=== PATIENT | male | born 1930 | race Caucasian/White ===

== ENCOUNTER 2017-09-09 04:51 | Inpatient (IN) | payer OTHER ==
[2017-07-15 08:50] VITALS: Ht 172.7 cm; Wt 75.6 kg
--- NOTE | 2017-07-15 09:24 | PAT Medication Instructions ---
Service Date Jul 15, 2017. Current Home Medication List Aspirin (Aspirin), 81 MG PO QPM Carvedilol (Coreg), 25 MG PO BID Dorzolamide Hcl-Timolol Maleat (Cosopt Oph), 1 DROPS OPB BID Felodipine (Plendil), 10 MG PO QPM Fluticasone Propionate (Flovent Hfa), 2 PUFFS INH BID Fluticasone Propionate (Nasal) (Flonase Allergy Relief), 2 SPRAY NA QPM Hydralazine Hcl (Apresoline), 50 MG PO TID Levothyroxine Sodium (Levothyroxine Sodium), 1 TAB PO QAM Lisinopril (Zestril), 40 MG PO QAM Metformin Hcl (Glucophage), 500 MG PO BIDM [employer]ax [employer] Natural Products (Cloud Your Car Health), 1 CAP PO QPM Multivitamin (Multivitamin), 1 TAB PO NON Naproxen (Aleve), 220 MG PO BID [place]-3 Fatty Acids (Fish Oil), 1 TAB PO NOON Simvastatin (Zocor), 10 MG PO QPM Travoprost (Travatan Z), 1 DROPS OPB HS Triamterene/Hctz (Maxzide 75MG/50MG), 1 TAB PO QAM Medication Instructions For Your Scheduled Surgery -Ask your surgeon for instructions regarding: Naproxen (Aleve), 220 MG PO BID - Hold the following medications 2 weeks prior to surgery: [place]-3 Fatty Acids (Fish Oil), 1 TAB PO NOON - Hold the following medications 48 hours prior to surgery: Metformin Hcl (Glucophage), 500 MG PO BIDM - Hold the following medications the morning of surgery: Triamterene/Hctz (Maxzide 75MG/50MG), 1 TAB PO QAM Multivitamin (Multivitamin), 1 TAB PO NOON Lisinopril (Zestril), 40 MG PO QAM - Take the following medications the morning of surgery with a sip of water: Hydralazine Hcl (Apresoline), 50 MG PO TID Fluticasone Propionate (Flovent Hfa), 2 PUFFS INH BID Carvedilol (Coreg), 25 MG PO BID Dorzolamide Hcl-Timolol Maleat (Cosopt Oph), 1 DROPS OPB BID (BRING WITH YOU TO THE HOSPITAL) Levothyroxine Sodium (Levothyroxine Sodium), 1 TAB PO QAM - Take the following medications as scheduled the night before surgery: Aspirin (Aspirin), 81 MG PO QPM Misc Natural Products (Prostate Health), 1 CAP PO QPM Carvedilol (Coreg), 25 MG PO BID Dorzolamide Hcl-Timolol Maleat (Cosopt Oph), 1 DROPS OPB BID Felodipine (Plendil), 10 MG PO QPM Fluticasone Propionate (Flovent Hfa), 2 PUFFS INH BID Fluticasone Propionate (Nasal) (Flonase Allergy Relief), 2 SPRAY NA QPM Hydralazine Hcl (Apresoline), 50 MG PO TID Simvastatin (Zocor), 10 MG PO QPM Travoprost (Travatan Z), 1 DROPS OPB HS If you have any questions please call us at [phone] or [phone] or [phone]
--- NOTE | 2017-07-15 10:10 | DIAGNOSTIC IMAGING REPORT ---
CHEST PREADMISSION(PA/LAT) CLINICAL HISTORY: 86 years-old Male presenting with preoperative assessment. TECHNIQUE: Portable upright AP view of the chest was obtained. COMPARISON: None. FINDINGS: Atherosclerosis of aortic arch. Cardiac silhouette normal in size. Lungs and pleural spaces clear. Degenerative changes of the thoracic spine. Mildly exaggerated thoracic kyphosis with a focal compression deformity in a lower thoracic vertebral body. Upper abdomen normal. IMPRESSION: 1. No acute cardiopulmonary disease. 2. Focal compression deformity in the lower thoracic vertebral body, age indeterminant. Correlate for point tenderness. Electronically signed by: Berto Andino M.D. 07/15/2017 10:09 AM Dictated Date/Time: 07/15/2017 10:08 AM
[2017-07-15 10:23] LABS: BASO % 0.8 %; BASO ABS # 0.08 K/uL (0-0.2); COMPLETE YES; EOS % 8.7 %; HEMATOCRIT 41.4 % (42-52); IG% 0.5 %; LYMPH % 14.8 %; LYMPH ABS # 1.48 K/uL (1.2-3.4); MEAN CELL VOLUME 86.3 fL (80-100); MEAN CORPUSCULAR HEMOGLOBIN 29.8 pg (25-34); MEAN CORPUSCULAR HGB CONC 34.5 g/dl (32-36); MEAN PLATELET VOLUME 8.7 fL (7.4-10.4); MONO % 7.8 %; NEUT % 67.4 %; PLATELET COUNT 280 K/uL (130-400); WHITE BLOOD COUNT 9.97 K/uL (4.8-10.8)
[2017-07-15 10:30] LABS: INR 1.1 (0.9-1.1); PARTIAL THROMBOPLASTIN RATIO 1.1; PROTHROMBIN TIME (PATIENT) 11.3 SECONDS (9.0-12.0)
[2017-07-15 11:02] LABS: BUN/CREATININE RATIO 16.3 (10-20); CALCIUM 9.2 mg/dl (8.5-10.1); CREATININE 1.4 mg/dl (0.60-1.40); POTASSIUM 3.7 mmol/L (3.5-5.1)
--- NOTE | 2017-09-05 10:22 | HISTORY & PHYSICAL EXAMINATION ---
DATE OF ADMISSION: 09/09/2017 CHIEF COMPLAINT: Right hip, thigh and leg pain. HISTORY OF PRESENT ILLNESS: The patient is an 86-year-old fairly independent and active gentleman from [place] who presents for treatment of his right hip. He has got a several year history of increasing right hip pain and discomfort. He describes it has gotten worse over the past several years and more specifically over the past 6 months. He has had to use a cane to get around. He has been seen by Dr. Gasca and Dr. Tabares neurologist and sent him here to have his hip fixed. He has been pretty independent, but less able to do so now that his hip is bothering him. He takes some medicines which takes the edge off it at best. He would like to have his hip fixed. PAST MEDICAL HISTORY: 1. Diabetes with hemoglobin A1c of 5.8. 2. Hypothyroidism. 3. Elevated cholesterol. 4. Skin cancer. 5. Hypertension. 6. Asthma. PAST SURGICAL HISTORY: 1. Hernia repair. 2. Polyp removal from the sinuses. ALLERGIES: None. CURRENT MEDICINES: Include: 1. Hydralazine 50 mg a day. 2. Levoxyl 10 mcg daily. 3. Felodipine ER 10 mg a day. 4. Lisinopril 40 mg a day. 5. Metformin 500 mg twice a day with meals. 6. Carvedilol 25 mg twice a day. 7. Simvastatin/Zocor 10 mg at bedtime. 8. Triamterene/hydrochlorothiazide 75/50 once a day. 9. Flovent inhaler 2 puffs twice a day. 10. Flonase nasal spray 2 sprays in each nostril once a day. 11. Cosopt ophthalmic solution. 12. Multivitamin. 13. Prostate health tablets. 14. Aspirin 81 mg. 15. [place] fish oil. 16. Travatan eyedrops. SOCIAL HISTORY: An 86-year-old male. He is . Three children. He does not drink. FAMILY HISTORY: Significant for heart disease. REVIEW OF SYSTEMS: Negative or diabetes. He is diabetic, but very well controlled with hemoglobin A1c of 5.8. Denies any chest pain or shortness of breath. No history of DVT or PE. PHYSICAL EXAMINATION: GENERAL: Reveals a pleasant elderly male. He looks to be in good health. HEAD, EYES, EARS, NOSE, AND THROAT EXAMINATION: Benign. NECK: Supple. No lymphadenopathy. LUNGS: Clear to auscultation. HEART: Has a regular rate and rhythm. ABDOMEN: Soft, nontender, nondistended. EXTREMITY EXAMINATION: Grossly neurovascularly intact except as follows: Examination of the right hip and leg reveals the patient walks with an antalgic gait. He is using a cane to walk. He has about 1 cm short on the right side compared to left. Very stiff hip with internal rotation -5 and pain with this. He has got negative straight leg raise. X-RAYS: X-rays of the right hip were reviewed. It shows advanced right hip DJD. He has got complete loss of the superior joint space. He has got flattening of his femoral head. He has got cystic changes in the femoral head and acetabulum with a large medial osteophyte. ASSESSMENT: An 86-year-old male with advanced right hip degenerative joint disease. He has failed conservative care and really limiting his activities and ability to maintain an active lifestyle. PLAN: We are going to take him to the operating room and do a right total hip replacement. The risks and benefits of this procedure were explained to the patient including but not limited to DVT, PE, , infection, neurological injury, vascular injury, bleeding problem, pain, limited range of motion, stiffness, failure to relieve her symptoms, incomplete relief of symptoms, need for further surgery in the future, fracture, leg length inequality, nerve palsy, dislocation, fracture, need for blood transfusion, etc. The patient understands and desires to proceed. Informed consent was obtained. We did talk to him about holding his lisinopril the morning of surgery and his metformin 2 days preoperatively. He will take his beta antoni the morning of surgery. He is planning to be discharged to home with the [facility] home health program. His daughter is going to help take care of him.
[2017-09-09] VITALS (19 sets, daily range): BP systolic 107–163; BP diastolic 56–83; PULSE 47–97; TEMP 34.8–37.1; O2SAT 95–99
[~2017-09-09] VITALS: Ht 172.7 cm; Wt 75.6 kg
[~2017-09-09 04:51] MED LIST: ASPI-461 PO; CARV25TA PO; DORZ1SOL6 OPB; FELO10TA2 PO; FLUT0.15 NAE; FLVHFA110 INH; GLC/500 PO; HYDR-4717 PO; LEVO100T7 PO; LISI40TA PO; MISCCAP63 PO; MULT-506 PO; NAPR1TAB9 PO; OMEG10002 PO; SIMV10TA2 PO; TRAV0.00 OPB; TRIA75TA53 PO
[2017-09-09] MEDS ORDERED: SPIR25TA PO (05:43)
[2017-09-09] MEDS ORDERED: HYD50 (05:43)
[2017-09-09] MEDS ORDERED: GABAPENTIN 300 MG CAP PO SCH (06:00)
[2017-09-09] MEDS ORDERED: CEFAZOLIN 2000MG IV PUSH 10 ML IV SCH (06:00)
[2017-09-09] MEDS ORDERED: TRANEXAMIC ACID INJ 1,000 MG in SYRINGE 0 ML IV SCH (06:00)
[2017-09-09] MEDS ORDERED: ACETAMINOPHEN 500 MG TAB PO SCH (06:00)
[2017-09-09] MEDS ORDERED: LACTATED RINGER'S 1000ML IV SCH (06:00)
[2017-09-09] MEDS ORDERED: SCOPOLAMINE 1.5 MG TDSY TD SCH (06:00)
[2017-09-09] MEDS ORDERED: METOCLOPRAMIDE HCL 10 MG TAB PO SCH (06:00)
[2017-09-09] MEDS ORDERED: LACTATED RINGER'S 1000ML 1,000 ML IV SCH (06:00)
[2017-09-09] MEDS ORDERED: FAMOTIDINE 20 MG TAB PO SCH (06:00)
[2017-09-09] MEDS ORDERED: BUPIVACAINE 0.5 % 5 MG/1 ML PF 10ML VIAL ONE (06:22)
[2017-09-09] MEDS ORDERED: BUPIVACAINE/EPINEPHRINE 0.5% MPF 1:200,000 30 ML VIAL ONE (06:33)
[2017-09-09] MEDS ORDERED: BACITRACIN 50000 UNIT VIAL ONE (06:33)
[2017-09-09] MEDS ORDERED: FENTANYL CITRATE INJ 50 MCG/1 ML 2 ML VIAL ONE (06:36)
[2017-09-09] MEDS ORDERED: MIDAZOLAM HCL 1 MG/ML 2ML VIAL ONE (06:36)
[2017-09-09] MEDS ORDERED: MORPHINE SULFATE PF 2MG/2ML SYR ONE (06:37)
--- NOTE | 2017-09-09 06:53 | History & Physical Bridge Note ---
H&P Re-Evaluation Bridge Note: I have examined the patient, reviewed the History & Physical and in the interval since the performance of the History & Physical I have noted the following changes of clinical significance: No changes noted
[2017-09-09] MEDS ORDERED: EpHEDrine SULFATE INJ 50 MG/ML AMP IV PRN ×2 (07:15→08:00)
[2017-09-09] MEDS ORDERED: FENTANYL CITRATE INJ 50 MCG/1 ML 2 ML VIAL IV PRN (07:15)
[2017-09-09] MEDS ORDERED: ONDANSETRON INJ 2 MG/ML 2 ML VIAL IV PRN ×2 (07:15→08:00)
[2017-09-09] MEDS ORDERED: ATROPINE SULFATE 0.1 MG/ML 5ML SYR IV PRN (07:15)
[2017-09-09] MEDS ORDERED: VASOPRESSIN 20 UNIT/ML VIAL ONE (07:40)
[2017-09-09] MEDS ORDERED: NALOXONE HCL INJ 1 MG in SODIUM CHLORIDE 0.9% 1000ML 1,000 ML IV PRN (07:47)
[2017-09-09] MEDS ORDERED: SODIUM CHLORIDE 0.9% 1000ML 1,000 ML IV PRN (07:47)
[2017-09-09] MEDS ORDERED: LACTATED RINGER'S 1000ML 500 ML IV PRN (07:47)
[2017-09-09] MEDS ORDERED: NALOXONE HCL INJ 0.08 MG in SYRINGE 1.8 ML IV PRN (07:47)
[2017-09-09] MEDS ORDERED: PHENYLEPHRINE 100MCG/ML 5ML SYR ONE (07:58)
[2017-09-09] MEDS ORDERED: EpHEDrine SULFATE 50MG/5ML SYR ONE (07:58)
[2017-09-09] MEDS ORDERED: PROPOFOL IV EMULSION 10 MG/ML 20 ML VIAL IV ONE (07:58)
[2017-09-09] MEDS ORDERED: MoRPHine SULFATE 2 MG/ML CARP IV PRN (08:00)
[2017-09-09] MEDS ORDERED: MoRPHine SULFATE PF 1 MG/ML 10 ML AMP/VIAL EPI PRN (08:00)
[2017-09-09] MEDS ORDERED: NALBUPHINE HCL INJ 10 MG/ML AMP IV PRN (08:00)
[2017-09-09] MEDS ORDERED: NO NARCOTICS OR SEDATIVES SCH (08:00)
[2017-09-09] MEDS ORDERED: DiphenhydrAMINE HCL 50 MG/ML VIAL IV PRN (08:00)
[2017-09-09] MEDS ORDERED: NALOXONE HCL 0.4 MG/1 ML VIAL/CARP IV PRN (08:00)
--- NOTE | 2017-09-09 08:32 | [facility] Post Operative Brief Note ---
Immediate Operative Summary Operative Date Sep 09, 2017. Pre-Operative Diagnosis Advanced Right Hip Degenerative Joint Disease Post-Operative Diagnosis Advanced Right Hip Degenerative Joint Disease Procedure(s) Performed Right Total Hip Arthroplasty--Uncemented Surgeon Dr. Fields Environmental Issues Instructor Surgeon(s) FLAVIO Rea Estimated Blood Loss 300 ml Findings Right Hip DJD Fluids (cc crystalloids) 1200 cc Specimens A. Right Femoral Head Drains None Anesthesia Spinal Complication(s) None Disposition Recovery Room / PACU
[2017-09-09] MEDS ORDERED: NO NSAIDS SCH (08:45)
[2017-09-09] MEDS ORDERED: BISACODYL 10 MG SUPP PR PRN (08:45)
[2017-09-09] MEDS ORDERED: METOCLOPRAMIDE HCL INJ 5 MG/ML 2 ML VIAL IV PRN (08:45)
[2017-09-09] MEDS ORDERED: GLUCOSE 10 TABS/TUBE PO PRN ×2 (08:45→11:30)
[2017-09-09] MEDS ORDERED: DEXTROSE 50% 50 ML SYR IV PRN ×2 (08:45→11:30)
[2017-09-09] MEDS ORDERED: TAMSULOSIN HCL 0.4 MG CAP PO PRN (08:45)
[2017-09-09] MEDS ORDERED: MAGNESIUM HYDROXIDE SUSP 30 ML UDC PO PRN (08:45)
[2017-09-09] MEDS ORDERED: GLUCAGON FOR INJ 1 MG VIAL SQ PRN ×2 (08:45→11:30)
[2017-09-09] MEDS ORDERED: ALUMINUM/MAGNESIUM/SIMETH (MAALOX MAX) 30 ML UDC PO PRN (08:45)
[2017-09-09] MEDS ORDERED: SILVER SULFADIAZINE 1% CR 50 GM JAR EXT PRN (08:45)
[2017-09-09] MEDS ORDERED: GLUCOSE 40% GEL 15 GM TUBE PO PRN ×2 (08:45→11:30)
--- NOTE | 2017-09-09 08:54 | Anesthesiology Progress Note ---
Anesthesia Post Op Note Date & Time Sep 09, 2017 at 08:53 Vital Signs Pain Intensity: 0 Vital Signs Past 12 Hours Date Time Temp Pulse Resp B/P (MAP) Pulse Ox O2 Delivery O2 Flow Rate FiO2 09/09/17 08:47 70 17 99 09/09/17 08:47 69 17 09/09/17 08:46 103/62 09/09/17 08:42 68 18 09/09/17 08:42 68 18 99 09/09/17 08:41 107/54 09/09/17 08:37 63 16 100 09/09/17 08:37 63 16 09/09/17 08:36 109/55 09/09/17 08:33 102/54 09/09/17 08:32 36.0 62 20 102/54 100 Oxymask 10 09/09/17 08:32 61 15 09/09/17 08:32 61 15 100 09/09/17 05:48 36.7 58 20 146/76 97 Room Air Notes Mental Status: alert / awake / arousable, participated in evaluation Nausea / Vomiting: adequately controlled Pain: adequately controlled Airway Patency, RR, SpO2: stable & adequate BP & HR: stable & adequate Hydration State: stable & adequate Neuraxial Anesthesia: was administered, sensory block is resolving Anesthetic Complications: no major complications apparent
[2017-09-09] MEDS ORDERED: MULTIVITAMIN TAB PO SCH (09:00)
--- NOTE | 2017-09-09 09:23 | DIAGNOSTIC IMAGING REPORT ---
AP PELVIS, CROSSTABLE LATERAL RIGHT HIP History: Right total hip arthroplasty. Degenerative arthritis. Postop. FINDINGS: The patient is status post a right total hip arthroplasty. The hardware is intact. No fracture or dislocation. Skin theo are in place. IMPRESSION: Right total hip arthroplasty. No evidence for hardware complication Electronically signed by: Krystian De Leon M.D. 09/09/2017 9:21 AM Dictated Date/Time: 09/09/2017 9:21 AM
[2017-09-09] MEDS ORDERED: HYDR25TA5 PO (10:58)
[2017-09-09] MEDS ORDERED: CRG125 PO (10:58)
[2017-09-09] MEDS ORDERED: INSULIN HUMAN REGULAR SC SCH (11:00)
[2017-09-09] MEDS ORDERED: ALBUTEROL 0.083% NEBU SOLN 3 ML VIAL INH PRN (11:00)
--- NOTE | 2017-09-09 11:30 | OPERATIVE REPORT ---
DATE OF OPERATION: 09/09/2017 PREOPERATIVE DIAGNOSIS: Right hip degenerative joint disease. POSTOPERATIVE DIAGNOSIS: Same. PROCEDURE PERFORMED: Right uncemented total hip arthroplasty. SURGEON: Sridhar Fields M.D. MEDICAL STAFF ASSISTANT: Jameel Back PA-C. COMPLICATIONS: None. ESTIMATED BLOOD LOSS: 300 mL. FLUID REPLACEMENT: 1200 mL crystalloid fluid replacement. ANESTHESIA: Spinal. DRAINS: None. SPECIMENS: Right femoral head sent for pathology. OPERATIVE INDICATIONS: The patient is an 86-year-old gentleman, quite independent, lives by himself, who has had a several year history of increasing right hip pain and discomfort that has gotten significantly worse over the past 6 months where he is having trouble even living by himself and getting around. X-rays revealed advanced right hip DJD. He failed all conservative care. He elected to proceed with total hip arthroplasty. Of note, the patient has some early signs of some Parkinson's disease. We therefore anteverted the acetabular cup a little bit more than the usual trying to maximize his stability. OPERATIVE FINDINGS: Operative findings revealed advanced right hip DJD. He had extensive grade 4 changes of the femoral head and acetabulum. He had a large medial osteophyte. Moderate size joint effusion. About a 1 cm leg length discrepancy, right side shorter than the left. OPERATIVE IMPLANTS: Operative implants consisted of: 1. Biomet G7 size 60 mm acetabular shell. 2. A 6.5 cancellous acetabular screws, 1 at 35 mm length and 1 at 25 mm in length. 3. An apex hole eliminator. 4. A highly cross-linked polyethylene liner with a 60 mm outer diameter, 36 mm inner diameter with a guallpa placed inferior and posterior. 5. A DePuy size 13.5 large stature standard offset femoral stem. 6. A +5/36 mm metal articular ball. OPERATIVE PROCEDURE: The patient was taken to the operating room, identified and placed on the operating table in supine position. All contact areas were appropriately padded. IV antibiotics were provided by anesthesia team. A spinal anesthetic had been implemented in the holding area. Ruiz catheter was placed in sterile fashion. The patient was then placed in the left lateral decubitus position. An axillary roll was placed. [facility] hip positioner was used for positioning. The right hip and leg were then prepped and draped in the usual sterile fashion. A posterolateral approach to the right hip was then performed through a curvilinear incision centered over the greater trochanter. Sharp dissection was carried down through the subcutaneous tissue down to the level of the IT band and gluteal fascia. The IT band and gluteal fascia were incised longitudinally in line with skin incision. The underlying greater trochanteric bursa was excised. The piriformis and external rotators were tagged and taken off the posterior aspect of the femur. Great care was taken throughout the procedure to protect the sciatic nerve at all times. Posterior capsulotomy was then performed leaving a large flap for later repair. It was internally rotated and dislocated. Femoral neck osteotomy cut was made with the final cut about 8 mm above the lesser trochanter. Femoral head was removed and sent for pathology. The femur was retracted anteriorly. Attention was then drawn to the acetabulum. The acetabular labrum was excised. The pulvinar fat was excised. Sequential reaming of the acetabulum was then performed beginning with a size 51 and progressing up to a 59. A 60 mm Biomet G7 acetabular shell was then placed in about 40 degrees of lateral opening and 20 degrees of anteversion. I did put a little more anteversion in this to maximize his posterior stability. The 2 screws were used to fix the acetabulum. Some osteophytes were taken off inferiorly. Attention was then drawn to the femur. The proximal femur was entered with a cookie cutter followed by canal finder and lateralizing reamer. Sequential reaming of the femur was then performed beginning with a size 10 and progressing up to a 13. We started getting a little bit of chatter at 12. 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 I broached beginning with a size 10.5 small and progressing up to 13.5 large. We got good metaphyseal fit. We elected to use these implants. I trialed the hip and the +5 articular ball recreated leg lengths appropriately and it was fully stable in full extension and external rotation, flexion to 90 degrees, internal rotation to 60 degrees. I did elect to place a guallpa very inferior and posterior to maximize stability in flexion. We elected to use these implants. All trial implants were removed. An apex hole eliminator was placed. Highly cross-linked polyethylene liner with a guallpa placed inferior and posterior were then placed. A 13.5 large stature AML femoral stem was impacted in position. We got good fit. A +5/36 mm metal articular ball was placed. Hip was located and once again found to be stable. Attention was then drawn toward closing. The wound was irrigated with copious amounts of pulsatile lavage solution. I did inject locally with 60 mL of 0.5% Marcaine with epinephrine. The posterior capsule and external rotators were then repaired through drill holes in the posterior trochanter with #2 Ti-Cron suture. The IT band and gluteal fascia were then closed with #1 PDS suture in running fashion. The subcutaneous tissues were then closed in 2 layers, the deep layer #1 Vicryl sutures, subcutaneous tissue with 2-0 Dexon suture in a buried interrupted fashion. Skin was closed skin theo. Leg was then cleaned and dried and a sterile dressing of Xeroform, 4 x 4s, sterile ABD pad and foam tape was applied. The patient was then transferred to the recovery room in stable condition. The patient tolerated the procedure with no complications. All needle and sponge counts were correct at the end of the operation. I attest to the content of the Intraoperative Record and any orders documented therein. Any exception s are noted below.
--- NOTE | 2017-09-09 11:43 | Medical Consult ---
Consultation Date of Consultation: Sep 09, 2017. Attending Physician: Sridhar Fields M.D. Reason for Consultation: Medical management History of Present Illness Pt is 86 y/o M with PMH DM II, HTN, hyperlipidemia, hypothyroidism, CKD III, asthma is seen in medical consult. Had R total hip arthroplasty today by Dr Fields. Pt had cardiac clearance prior to surgery. ECHO: 07/30/17 EF: 55-59%. Hx sinus fran with bifascicular block was asymptomatic, HR improved after decrease in carvedilol. Stress test: 08/22/17 with no inducible ischemia. Hx asthma takes flovent daily, denies any rescue inhaler use. Pt denies any pain currently. Is sitting up eating. Denies any paresthesias to extremities. Denies any nausea or vomiting. has Ruiz in place. Last BM yesterday. Afebrile. Pulse in 50's. BP stable. Denies fever/chills, diaphoresis, DEVINE, dizziness, vision changes, neck pain, CP, SOB, orthopnea, palpitations, cough, choking, abdominal pain, paresthesias, rashes. Past Medical/Surgical History Medical Problems: (1) Asthma Status: Chronic (2) Chronic rhinitis Status: Chronic (3) CKD (chronic kidney disease), stage III Status: Chronic (4) DM type 2 (diabetes mellitus, type 2) Status: Chronic (5) Glaucoma Status: Chronic (6) HTN (hypertension) Status: Chronic (7) Hx of basal cell carcinoma Status: Chronic (8) Hyperlipidemia Status: Chronic (9) Hypothyroidism Status: Chronic Surgical Problems: (1) Hx of nasal polypectomy Status: Resolved (2) Hx of right inguinal hernia repair Status: Resolved Family History Hypertension FATHER Stroke FATHER Social History Smoking Status: Never Smoker Smokeless Tobacco Use: No Alcohol Use: none Drug Use: none Marital Status: Allergies Coded Allergies: No Known Allergies (Unverified , 09/09/17) Current Inpatient Medications Current Inpatient Medications Medications (Trade) Dose Ordered Sig/Rigoberto Route Start Time Stop Time Status Last Admin Dose Admin Lactated Ringer's 1,000 ml @ 60 mls/hr [id number] IV 09/09/17 06:00 09/09/17 22:39 09/09/17 06:26 60 MLS/HR Cefazolin Sodium 10 ml @ 2.5 mls/min PREOP IV 09/09/17 06:00 09/09/17 18:00 09/09/17 06:59 2.5 MLS/MIN Acetaminophen (Tylenol Tab) 1,000 mg PREOP PO 09/09/17 06:00 09/09/17 18:00 09/09/17 06:04 1,000 MG Famotidine (Pepcid Tab) 20 mg PREOP PO 09/09/17 06:00 09/09/17 18:00 09/09/17 06:04 20 MG Gabapentin (Neurontin Cap) 300 mg PREOP PO 09/09/17 06:00 09/09/17 18:00 09/09/17 06:04 300 MG Metoclopramide HCl (Reglan Tab) 10 mg PREOP PO 09/09/17 06:00 09/09/17 18:00 09/09/17 06:04 10 MG Lactated Ringer's 1,000 ml @ 15 mls/hr Q24H IV 09/09/17 06:00 09/10/17 05:59 Fentanyl Citrate (Fentanyl Inj) 25 mcg Q5M PRN IV 09/09/17 07:15 09/09/17 12:00 Ondansetron HCl (Zofran Inj) 4 mg ONE PRN IV 09/09/17 07:15 09/09/17 12:00 Ephedrine Sulfate (EpHEDrine SULFATE INJ) 5 mg Q5M PRN IV 09/09/17 07:15 09/09/17 12:00 Atropine Sulfate (Atropine Sulfate 0.1MG/Ml Inj) 0.5 mg Q1M PRN IV 09/09/17 07:15 09/09/17 12:00 Naloxone HCl (Narcan Inj) 0.1 mg UD PRN IV 09/09/17 08:00 09/10/17 07:00 Diphenhydramine HCl (Benadryl Inj) 25 mg Q6H PRN IV 09/09/17 08:00 09/10/17 07:00 Nalbuphine HCl (Nubain Inj) 5 mg Q10M PRN IV 09/09/17 08:00 09/10/17 07:00 Naloxone HCl 1 mg/ Sodium Chloride 1,002.5 ml @ 50 mls/hr Q20H3M PRN IV 09/09/17 07:47 09/10/17 07:00 Ondansetron HCl (Zofran Inj) 4 mg Q6H PRN IV 09/09/17 08:00 09/10/17 07:00 Miscellaneous Information (Dc Intraspinal Morphine) 1 ea TODAY@0700 N/A 09/10/17 07:00 09/10/17 07:01 Miscellaneous Information (No Narcotics Or Sedatives) 1 ea UD N/A 09/09/17 08:00 09/10/17 07:00 Naloxone HCl 0.08 mg/Syringe 2 ml @ 1 mls/min Q2M PRN IV 09/09/17 07:47 09/10/17 07:00 Morphine Sulfate (MoRPHine SULFATE INJ) 2 mg Q6H PRN IV 09/09/17 08:00 09/10/17 07:00 Lactated Ringer's 500 ml @ 999 mls/hr Q31M PRN IV 09/09/17 07:47 09/10/17 07:00 Ephedrine Sulfate (EpHEDrine SULFATE INJ) 10 mg Q5M PRN IV 09/09/17 08:00 09/10/17 07:00 Morphine Sulfate (Duramorph Pf Inj) 0.2 mg TODAY PRN EPI 09/09/17 08:00 09/10/17 07:00 Sodium Chloride 1,000 ml @ 15 mls/hr Q24H PRN IV 09/09/17 07:47 09/10/17 07:00 Sodium Chloride 1,000 ml @ 100 mls/hr Q10H IV 09/09/17 10:00 09/10/17 09:59 Miscellaneous Medication (No Nsaids) 1 ea UD N/A 09/09/17 08:45 10/09/17 08:44 Acetaminophen (Tylenol Tab) 1,000 mg Q8 PO 09/09/17 14:00 10/09/17 13:59 Magnesium Hydroxide (Milk Of Magnesia Susp) 30 ml Q6H PRN PO 09/09/17 08:45 10/09/17 08:44 Bisacodyl (Dulcolax Supp) 10 mg DAILY PRN [place] 09/09/17 08:45 10/09/17 08:44 Senna (Senokot Tab) 17.2 mg HS PO 09/09/17 21:00 10/09/17 20:59 Docusate Sodium (coLACE CAP) 100 mg BID PO 09/09/17 21:00 10/09/17 20:59 Al Hydrox/Mg Hydrox/Simethicone (Maalox Max Susp) 15 ml Q4H PRN PO 09/09/17 08:45 10/09/17 08:44 Zolpidem Tartrate (Ambien Tab) 5 mg HSZ PRN PO 09/10/17 07:00 10/10/17 06:59 Ondansetron HCl (Zofran Inj) 4 mg Q6H PRN IV 09/10/17 07:00 10/10/17 06:59 Metoclopramide HCl (Reglan Inj) 10 mg Q6H PRN IV 09/09/17 08:45 10/09/17 08:44 Ferrous Gluconate (Ferrous Gluconate Tab) 324 mg TIDM PO 09/09/17 12:00 10/09/17 11:59 Pantoprazole Sodium (Protonix Tab) 40 mg QAM PO 09/10/17 09:00 10/10/17 08:59 Silver Sulfadiazine (Silvadene 1% Crm 50GM Jar) 1 appln BID PRN EXT 09/09/17 08:45 10/09/17 08:44 Aspirin (Ecotrin Tab) 325 mg BID PO 09/09/17 10:30 10/09/17 10:29 Tramadol HCl (Ultram Tab) 1 TABLET FOR PAIN RATING... Q4H PRN PO 09/10/17 07:00 10/10/17 06:59 Tamsulosin HCl (Flomax Cap) 0.4 mg QAM PRN PO 09/09/17 08:45 10/09/17 08:44 Cefazolin Sodium 1000 mg/Syringe 5 ml @ 100 mls/hr Q8H IV 09/09/17 14:00 09/09/17 22:02 Tranexamic Acid 1000 mg/Sodium Chloride 110 ml @ 660 mls/hr TODAY@1500 IV 09/09/17 15:00 09/09/17 17:00 Hydromorphone HCl (Dilaudid Inj) 0.5 mg Q1H PRN IV 09/10/17 07:00 09/24/17 06:59 Carvedilol (Coreg Tab) 25 mg BID PO 09/09/17 21:00 10/09/17 20:59 Dorzolamide/ Timolol (Cosopt Op Soln) 1 drops BID OPB 09/09/17 21:00 10/09/17 20:59 Felodipine (Plendil Tabcr) 10 mg QPM PO 09/09/17 21:00 10/09/17 20:59 Fluticasone Propionate (Flovent Hfa 110MCG Inhaler) 2 puffs BID INH 09/09/17 21:00 10/09/17 20:59 Fluticasone Propionate (Flonase Nasal [place]) 2 sprays QPM NA 09/09/17 21:00 10/09/17 20:59 Hydralazine HCl (Apresoline Tab) 50 mg TID PO 09/09/17 14:00 10/09/17 13:59 Levothyroxine Sodium (Synthroid Tab) 100 mcg DAILYBB PO 09/10/17 06:00 10/10/17 05:59 Lisinopril (Zestril Tab) 40 mg QAM PO 09/10/17 09:00 10/10/17 08:59 Multivitamins (Multivitamin Tab) 1 tab DAILY PO 09/10/17 09:00 10/10/17 08:59 Simvastatin (Zocor Tab) 10 mg QPM PO 09/09/17 21:00 10/09/17 20:59 Spironolactone (Aldactone Tab) 25 mg DAILY PO 09/10/17 09:00 10/10/17 08:59 Travoprost (Travatan Z) 1 drops HS OPB 09/09/17 21:00 10/09/17 20:59 Insulin Human Regular (novoLIN-R) SLIDING SCALE ACHS SC 09/09/17 11:00 10/09/17 10:59 09/09/17 10:25 3 UNITS Glucose (Glucose 40% Gel) 15-30 GRAMS 15 GRAMS... UD PRN PO 09/09/17 08:45 10/09/17 08:44 Glucose (Glucose Chew Tab) 4-8 Tablets 4 Tabl... UD PRN PO 09/09/17 08:45 10/09/17 08:44 Dextrose (Dextrose 50% 50ML Syringe) 25-50ML OF 50% DW IV FOR... UD PRN IV 09/09/17 08:45 10/09/17 08:44 Glucagon (Glucagon Inj) 1 mg UD PRN SQ 09/09/17 08:45 10/09/17 08:44 Review of Systems Constitutional: No fever, No chills, No sweats, No weight loss, No weakness Eyes: No eye pain, No redness, No discharge ENT: No unusual epistaxis, No nasal symptoms, No tinnitus Respiratory: No cough, No sputum, No wheezing, No shortness of breath, No hemoptysis Cardiovascular: No chest pain, No orthopnea, No PND, No edema Abdomen: No pain, No nausea, No vomiting, No diarrhea, No GI bleeding Musculoskeletal: + problem reported (see HPI) Neurologic: No numbness/tingling, No vertigo Psychiatric: No depression symptoms, No anxiety Endocrine: No excessive thirst, No excessive urination Integumentary: No rash, No itch Physical Exam Date Time Temp Pulse Resp B/P (MAP) Pulse Ox O2 Delivery O2 Flow Rate FiO2 09/09/17 10:17 36.4 52 16 126/70 (88) 98 Nasal Cannula 2.0 09/09/17 09:50 53 16 122/64 (83) 99 09/09/17 09:15 99 Nasal Cannula 2.0 09/09/17 09:15 16 99 09/09/17 09:15 36.4 53 16 107/56 (73) 99 Nasal Cannula 2.0 09/09/17 09:15 99 Nasal Cannula 2.0 09/09/17 09:05 36.2 09/09/17 09:04 58 16 98 09/09/17 09:04 59 16 09/09/17 09:01 104/59 09/09/17 08:59 52 15 09/09/17 08:59 52 15 98 09/09/17 08:56 108/56 09/09/17 08:54 55 15 09/09/17 08:54 54 15 98 09/09/17 08:53 58 20 98 09/09/17 08:53 60 20 09/09/17 08:51 111/56 09/09/17 08:48 64 19 09/09/17 08:48 64 19 99 09/09/17 08:47 70 17 99 09/09/17 08:47 69 17 09/09/17 08:46 103/62 09/09/17 08:42 68 18 09/09/17 08:42 68 18 99 09/09/17 08:41 107/54 09/09/17 08:37 63 16 100 09/09/17 08:37 63 16 09/09/17 08:36 109/55 09/09/17 08:33 102/54 09/09/17 08:32 36.0 62 20 102/54 100 Oxymask 10 09/09/17 08:32 61 15 09/09/17 08:32 61 15 100 09/09/17 05:48 36.7 58 20 146/76 97 Room Air General Appearance: WD/WN, no apparent distress Head: normocephalic, atraumatic Eyes: normal inspection, PERRL, EOMI, sclerae normal ENT: pharynx normal (mucous membranes moist), + pertinent finding (hard of hearing) Neck: supple, no JVD, trachea midline Respiratory/Chest: chest non-tender, lungs clear, normal breath sounds, no respiratory distress, no accessory muscle use Cardiovascular: no edema, no murmur, normal peripheral pulses, + bradycardia ( 50's) Abdomen/GI: non tender, soft (hypoactive BS) Extremities/Musculoskelatal: normal capillary refill, + pertinent finding ( SCDs in place bilateral LE, dressing in place R hip. Sensation to light touch bilateral extremities intact, pedal pushes and pulls intact) Neurologic/Psych: alert, normal mood/affect, oriented x 3 Skin: normal color, warm/dry Laboratory Results Last 24 Hours Test 09/09/17 05:51 09/09/17 08:42 Bedside Glucose 125 mg/dl 220 mg/dl Assessment & Plan S/P R TOTAL HIP ARTHROPLASTY Pt had procedure today by Dr Fields -pain management per ortho -wound management per ortho -PT/OT as appropriate -DVT prophylaxis per ortho -incentive spirometry -monitor H&H for acute blood loss anemia HTN BP controlled at this time. continue to monitor -continue carvedilol -continue felodipine -continue HCTZ -continue lisinopril -continue hydralazine -resume ASA when appropriate per surgical team DM II HgbA1c 5.8 on 07/15/17 -hold metformin -NovoLog sliding scale per protocol -Lantus 10U BID ASTHMA Reports hx asthma -continue Flovent -albuterol prn HYPOTHYROIDISM TSH 2 on 02/2017 -TSH in am -continue levothyroxine HYPERLIPIDEMIA Lipids on 02/24/17: total: 135, LDL: 76, HDL: 39, Triglycerides:102 -continue simvastatin GLAUCOMA -continue dorzolamide-timolol -continue travatan CHRONIC RHINITIS -continue flonase DVT PROPHYLAXIS -per ortho DISPOSITION -admitted med/surg -Full Code as per pt -Follows with Dr Gasca for routine care Pt was seen with Dr Zaman. See addendum Attending Addendum The patient was seen and examined Has some right knee pain Denies any other symptoms O/E Hemodynamically stable Chest -clear Heart-regular Abdomen-benign,no masses,bowel sound present Labs and imaging studies were reviewed Agree with the assessment and plan, DR Hakeem Zaman
[2017-09-09] MEDS: CARVEDILOL 12.5 MG TAB PO SCH ×2 (12:54→22:50)
[2017-09-09] MEDS: FERROUS GLUCONATE 324 MG TAB PO SCH ×3 (12:55→18:09)
[2017-09-09] MEDS: ASPIRIN 325 MG ECTAB PO SCH ×2 (12:55→23:11)
[2017-09-09] MEDS: INSULIN ASPART 100 UNITS/ML 3 ML PEN SC SCH ×3 (13:02→22:42)
--- NOTE | 2017-09-09 14:05 | PROGRESS NOTE ---
DATE: 09/09/2017 SUBJECTIVE: An 86-year-old gentleman postop from a right total hip replacement. He is doing well. Not having any pain yet. No chest pain or shortness of breath. Not feeling dizzy or lightheaded. OBJECTIVE: VITAL SIGNS: Temperature is 36.4. Vital signs stable. Mildly bradycardic with a pulse around 50. GENERAL: Physical examination reveals a pleasant elderly male. He is sitting up in bed and talking to his daughter. He is eating lunch. He looks comfortable. LUNGS: Clear to auscultation. HEART: Has a regular rhythm. Slightly bradycardic. ABDOMEN: Soft, nontender, and nondistended. EXTREMITIES: Grossly neurovascularly intact except as follows. Examination of the right lower extremity reveals the leg to be well aligned. Dressing is clean, dry, and intact. He can dorsiflex and plantarflex his foot appropriately. He is neurologically intact. Leg lengths are equal. X-RAYS: X-rays of the right hip from recovery room were reviewed. It shows a right uncemented total hip arthroplasty. Components looked to be in good position. No signs of problems. ASSESSMENT: An 86-year-old gentleman postop from a right total hip replacement, doing well. His pain is controlled. Hip is located. He is neurologically intact. Slightly bradycardic, but asymptomatic. He is on a beta antoni chronically. PLAN: 1. DVT prophylaxis including thigh-high TEDs, SCDs, and aspirin twice a day. 2. PT/OT. Weightbear as tolerated. Right total hip protocol. 3. Pain control. Doing well with current pain regimen. We are going to really try and limit narcotic use to avoid issues with confusion. 4. IV antibiotics x24 hours. 5. Bradycardia. We will hold his beta antoni tonight unless his pulse goes up. No real interval pressing concerns. 6. Disposition: He is planning to be discharged to home with home health and his daughter's help once adequately recovered.
[2017-09-09] MEDS: ACETAMINOPHEN 500 MG TAB PO SCH ×2 (14:07→23:38)
[2017-09-09] MEDS: CEFAZOLIN IV 1,000 MG in SYRINGE 0 ML IV SCH ×2 (14:08→23:10)
[2017-09-09] MEDS ORDERED: TRANEXAMIC ACID INJ 1,000 MG in SODIUM CHLORIDE 0.9% 100ML 100 ML IV SCH (15:00)
[2017-09-09] MEDS: SODIUM CHLORIDE 0.9% 1000ML 1,000 ML IV SCH (15:53)
[2017-09-09] MEDS ORDERED: CHECK SCOPOLAMINE PATCH PLACEMENT SCH (16:00)
[2017-09-09] MEDS: TRAVOPROST Z 0.004% OPH SOLN 2.5 ML BTL OPB SCH (21:00)
[2017-09-09] MEDS ORDERED: CARVEDILOL 25 MG TAB PO SCH (21:00)
[2017-09-09] MEDS ORDERED: NATURAL PRODUCTS PO SCH (21:00)
--- NOTE | 2017-09-09 21:35 | DIAGNOSTIC IMAGING REPORT ---
CHEST ONE VIEW PORTABLE CLINICAL HISTORY: cough dyspnea COMPARISON STUDY: 07/15/2017 FINDINGS: No evidence for acute infiltrate. Mild Baseline emphysematous change. No evidence for cardiac enlargement. Diaphragms smooth. IMPRESSION: Mild emphysematous change. No acute process. The above report was generated using voice recognition software. It may contain grammatical, syntax or spelling errors. Electronically signed by: Jaren Botello M.D. 09/09/2017 9:34 PM Dictated Date/Time: 09/09/2017 9:33 PM
[2017-09-09] MEDS: FLUTICASONE PROPIONATE NA SPR 16 GM BTL SCH (22:44)
[2017-09-09] MEDS: FLUTICASONE HFA 110MCG INHALER INH SCH (22:45)
[2017-09-09] MEDS: DORZOLAMIDE/TIMOLOL 22.3/6.8MG/ML 10 ML BTL OPB SCH (22:47)
[2017-09-09] MEDS: SENNA 8.6 MG TAB PO SCH (22:52)
[2017-09-09] MEDS: DOCUSATE SODIUM 100 MG CAP PO SCH (22:52)
[2017-09-09] MEDS: FELODIPINE 5 MG TABCR PO SCH (22:53)
[2017-09-09] MEDS: SIMVASTATIN 10 MG TAB PO SCH (22:54)
[2017-09-09] MEDS: INSULIN GLARGINE SOLOSTAR 100 UNITS/ML 3 ML PEN SC SCH (23:14)
[2017-09-10] VITALS (14 sets, daily range): BP systolic 102–163; BP diastolic 54–81; PULSE 58–78; TEMP 36.7–37.3; O2SAT 93–98
[2017-09-10] MEDS: SODIUM CHLORIDE 0.9% 1000ML 1,000 ML IV SCH (01:29)
[2017-09-10] MEDS: LEVOTHYROXINE 100 MCG TAB PO SCH (05:07)
[2017-09-10] MEDS: ACETAMINOPHEN 500 MG TAB PO SCH ×3 (06:26→22:13)
[2017-09-10 06:41] LABS: HEMATOCRIT 34.8 % (42-52); MEAN CELL VOLUME 87.9 fL (80-100); MEAN CORPUSCULAR HEMOGLOBIN 29.3 pg (25-34); MEAN CORPUSCULAR HGB CONC 33.3 g/dl (32-36); MEAN PLATELET VOLUME 9.3 fL (7.4-10.4); PLATELET COUNT 242 K/uL (130-400); RED BLOOD COUNT 3.96 M/uL (4.7-6.1)
[2017-09-10] MEDS ORDERED: ONDANSETRON INJ 2 MG/ML 2 ML VIAL IV PRN (07:00)
[2017-09-10] MEDS ORDERED: HYDROmorphone INJ 0.5 MG/0.5 ML SYR IV PRN (07:00)
[2017-09-10] MEDS ORDERED: ZOLPIDEM TARTRATE 5 MG TAB PO PRN (07:00)
[2017-09-10] MEDS ORDERED: TRAMADOL HCL 50 MG TAB PO PRN (07:00)
[2017-09-10] MEDS ORDERED: DC INTRASPINAL MORPHINE SCH (07:00)
[2017-09-10 07:06] LABS: BUN/CREATININE RATIO 18.3 (10-20); CALCIUM 7.9 mg/dl (8.5-10.1); CREATININE 1.38 mg/dl (0.60-1.40); POTASSIUM 3.2 mmol/L (3.5-5.1)
[2017-09-10 07:16] LABS: BASO % 0.2 %; BASO ABS # 0.03 K/uL (0-0.2); COMPLETE YES; EOS % 0.1 %; IG% 0.4 %; LARGE PLATELETS 1+; LYMPH % 10.2 %; LYMPH ABS # 1.73 K/uL (1.2-3.4); MONO % 9.1 %; POIKILOCYTOSIS PRESENT
[2017-09-10 07:17] LABS: THYROID STIMULATING HORMONE 0.656 uIu/ml (0.300-4.500)
[2017-09-10] MEDS ORDERED: ULT50X PO (08:04)
[2017-09-10] MEDS ORDERED: ACET-24 PO (08:04)
[2017-09-10] MEDS ORDERED: ASPEC325 PO (08:04)
--- NOTE | 2017-09-10 08:06 | Discharge Instructions ---
Discharge Instructions Date of Service Sep 10, 2017. Admission Reason for Admission: Right Hip Degenerative Hip Disease Discharge Discharge Diagnosis / Problem: Right Hip Replacement Discharge Goals Goal(s): Decrease discomfort, Improve function, Increase independence, Improve disease control, Therapeutic intervention Activity Recommendations Activity Limitations: per Instructions/Follow-up section (Total Hip PRecautions ) Weightbearing Status: Right weightbearing . Instructions / Follow-Up Instructions / Follow-Up ACTIVITY RECOMMENDATIONS: Physical Therapy: * Aggressive physical therapy is not usually needed. You will learn to take care of yourself safely and walk. * Follow the "Hip Precautions Instructions." * In some cases, the social sciences chair at the hospital will arrange to have a therapist come to your house for the first couple of weeks to help you learn these skills. * You need to practice on your own or with the help of a family member as needed. * When you learn these skills, most of the therapy can be done on your own. Home Exercise: * You were shown a series of exercises in the hospital. Do these exercises three to four times each day including the exercises you were shown in physical therapy. Walking: * Get up and walk several times each day. For the first four weeks, try not to stand or walk for more than one hour at a time. If you do stand or walk for more than one hour, you will not hurt anything, but your leg will likely swell. * As you feel comfortable, you may change from the walker or crutches to a cane and then to independent walking. MEDICATIONS: New Medicine: * You will likely be taking one or more of these medicines: 1. Tramadol - Take, as directed, when you need it, every four to six hours to control your pain. 2. Aspirin - Thins your blood to lessen the chance of forming a blood clot. * The most common side effects of pain medicine and iron are nausea and constipation. If nausea or constipation is too much of a problem or if you have any questions about your new medicines or doses, call [facility] at . We will try to help you manage these issues. VERY IMPORTANT TO READ AND REVIEW" Pain: * The immediate post-operative period after hip replacement surgery is often quite painful. * You are given a prescription for pain medicine. You should take it, as directed, when you need it, especially before physical therapy and before going to bed. Pain that interferes with sleep is very common and can last several months. * You will likely need pain medicine for the first two to four weeks. It will not stop all of the pain. The pain will lessen and as you feel better, you may change to milder pain medicine such as Tylenol. * The most common side effects of pain medicine are nausea and constipation, so don't take more than you need. SPECIAL CARE INSTRUCTIONS: TEDs/Elastic Stockings: * The white elastic stockings help limit swelling and prevent blood clots from forming in your legs. The more you wear them, the more they work. * Wear them for six weeks. Prevention of Infection: * Take antibiotics one hour before any dental cleaning, dental work, urological procedure, gastrointestinal procedure or any invasive surgery in order to prevent your new joint from getting infected. * You may get the antibiotics from the doctor performing the procedure or you may call our office at before and we will call in a prescription to the pharmacy of your choice. Things to Watch For: * Drainage from the incision site that occurs more than one week after your surgery. * Severely increased leg pain or swelling. * Increased redness at the incision site. * Fever above 102 degrees Fahrenheit. * Unusual chest pain or shortness of breath. * Unusual pain or burning with urination. Call [facility] at with any of the above problems or if you have any questions about your medicines or recovery. FOLLOW UP VISIT: Make an appointment to see your doctor for approximately two weeks after surgery for a progress check and staple removal by calling the office at . Current Hospital Diet Patient's current hospital diet: Diabetes Type 2 Diet Discharge Diet Recommended Diet: Diabetes Type 2 Diet Procedures Procedures Performed: Right Total Hip Arthroplasty--Uncemented Pending Studies Studies pending at discharge: no Laboratory Results Hemoglobin A1c Test 07/15/17 09:40 Range/Units Estimated Average Glucose 120 mg/dl Hemoglobin A1c 5.8 H 4.5-5.6 % Medical Emergencies . Who to Call and When: Medical Emergencies: If at any time you feel your situation is an emergency, please call 911 immediately. . Non-Emergent Contact Non-Emergency issues call your: Surgeon . "Provider Documentation" section prepared by Sridhar Fields. . VTE Core Measure Inpt VTE Proph given/why not?: Other Anticoagulation, T.E.D. Stockings, SCD's
[2017-09-10] MEDS: INSULIN GLARGINE SOLOSTAR 100 UNITS/ML 3 ML PEN SC SCH ×2 (08:33→21:20)
[2017-09-10] MEDS: INSULIN ASPART 100 UNITS/ML 3 ML PEN SC SCH ×4 (08:33→21:00)
[2017-09-10] MEDS: DOCUSATE SODIUM 100 MG CAP PO SCH ×2 (08:41→21:11)
[2017-09-10] MEDS: ASPIRIN 325 MG ECTAB PO SCH ×2 (08:41→21:11)
[2017-09-10] MEDS: LISINOPRIL 40 MG TAB PO SCH (08:42)
[2017-09-10] MEDS: MULTIVITAMIN TAB PO SCH (08:43)
[2017-09-10] MEDS: SPIRONOLACTONE 25 MG TAB PO SCH (08:44)
[2017-09-10] MEDS: PANTOprazole SOD 40 MG TAB PO SCH (08:44)
[2017-09-10] MEDS: FLUTICASONE HFA 110MCG INHALER INH SCH ×2 (08:46→21:02)
[2017-09-10] MEDS: DORZOLAMIDE/TIMOLOL 22.3/6.8MG/ML 10 ML BTL OPB SCH ×2 (08:46→21:04)
[2017-09-10] MEDS: FERROUS GLUCONATE 324 MG TAB PO SCH ×3 (08:46→17:52)
[2017-09-10] MEDS: CARVEDILOL 12.5 MG TAB PO SCH ×2 (08:46→21:11)
[2017-09-10] MEDS ORDERED: POTASSIUM CHLORIDE 10 MEQ TABCR PO STA (08:55)
[2017-09-10] MEDS: HYDROCHLOROTHIAZIDE 25 MG TAB PO SCH (09:52)
--- NOTE | 2017-09-10 10:45 | PROGRESS NOTE ---
DATE: 09/10/2017 DATE: 09/10/2017 SUBJECTIVE: An 86-year-old gentleman postop day 1 from right total hip replacement. He is doing pretty well. He says his pain is very well controlled. No chest pain or shortness of breath. Not feeling dizzy or lightheaded. Had a good evening sleeping. OBJECTIVE: VITAL SIGNS: Temperature 37.1. Vital signs stable. PHYSICAL EXAMINATION: GENERAL: Reveals a pleasant elderly male. He was working with occupational therapist when I visited him today. He was getting around with a walker reasonably well. EXTREMITIES: Examination of the right hip reveals his dressing to be clean, dry and intact. Thigh is soft and supple. He can dorsiflex and plantarflex his foot appropriately. Hip is located. LABORATORY DATA: Hemoglobin 11.6. Hematocrit 34.8. White cell count 17.0. Electrolytes: Potassium 3.2. Remainder of electrolytes are stable. ASSESSMENT: An 86-year-old gentleman with multiple medical comorbidities postop day 1 from right total hip replacement, doing quite well. His pain is controlled. Hip is located. He is neurologically intact. PLAN: 1. DVT prophylaxis including thigh-high TEDs, SCDs, and aspirin twice a day. 2. PT/OT. Weightbearing as tolerated. Right total hip protocol. 3. Pain control. Doing well with current pain regimen. We are going to try and limit narcotics to avoid confusion issues. 4. Hypokalemia. We will supplement his potassium. 5. Disposition. He is planning to be discharged to home. He is going to have some help with him and also some home health.
--- NOTE | 2017-09-10 13:08 | Anesthesiology Progress Note ---
Anesthesia Post Op Note Date & Time Sep 10, 2017 at 13:07 Vital Signs Pain Intensity: 0.0 Vital Signs Past 12 Hours Date Time Temp Pulse Resp B/P (MAP) Pulse Ox O2 Delivery O2 Flow Rate FiO2 09/10/17 11:20 36.7 58 16 102/54 (70) 97 Room Air 09/10/17 08:24 98 Room Air 09/10/17 07:49 37.1 64 18 124/60 (81) 98 Room Air 09/10/17 07:45 Room Air 09/10/17 06:15 16 95 09/10/17 05:10 16 95 09/10/17 04:10 16 94 09/10/17 04:00 37.3 75 16 119/62 (81) 95 Room Air 09/10/17 03:15 16 96 09/10/17 02:15 16 95 09/10/17 01:13 16 93 Notes Mental Status: alert / awake / arousable, participated in evaluation Pt Amnestic to Procedure: Yes Nausea / Vomiting: adequately controlled Pain: adequately controlled Airway Patency, RR, SpO2: stable & adequate BP & HR: stable & adequate Hydration State: stable & adequate Neuraxial Anesthesia: was administered, sensory block resolved Anesthetic Complications: no major complications apparent
--- NOTE | 2017-09-10 13:45 | Progress Note ---
Internal Med Progress Note Date of Service: Sep 10, 2017. Provider Documentation: SUBJECTIVE: The patient was seen and examined OOB in a chair Minimal Right Knee pain Ambulated well OBJECTIVE: Vital Signs-as noted below Exam: General-no distress Eyes-normal ENT-normal Neck-supple Lungs-clear to ausucltate bilaterally Heart-Regular,no murmur Abdomen-Benign,no masses,bowel sound present Extremities-No edema Neuro-AAOx3 Lab data as noted below. ASSESSMENT & PLAN: S/P R TOTAL HIP ARTHROPLASTY POD#1 Pt had procedure today by Dr Fields -pain management per ortho -wound management per ortho -PT/OT as appropriate -DVT prophylaxis per ortho -incentive spirometry -Blood count remains stable HTN BP controlled at this time. continue to monitor -continue carvedilol,continue felodipine,continue HCTZ,continue lisinopril and continue hydralazine -resume ASA when appropriate per surgical team -hypokalemia replaced -BP is controlled DM II HgbA1c 5.8 on 07/15/17 -hold metformin -NovoLog sliding scale per protocol -Lantus 10U BID -resume Metformin on discharge ASTHMA Reports hx asthma -continue Flovent -albuterol prn HYPOTHYROIDISM TSH 2 on 02/2017 -TSH in am -continue levothyroxine HYPERLIPIDEMIA Lipids on 02/24/17: total: 135, LDL: 76, HDL: 39, Triglycerides:102 -continue simvastatin GLAUCOMA -continue dorzolamide-timolol -continue travatan CHRONIC RHINITIS -continue flonase DVT PROPHYLAXIS -per ortho DISPOSITION -admitted med/surg -Full Code as per pt -Follows with Dr Gasca for routine care Medically stable Vital Signs: Date Time Temp Pulse Resp B/P (MAP) Pulse Ox O2 Delivery O2 Flow Rate FiO2 09/10/17 11:20 36.7 58 16 102/54 (70) 97 Room Air 09/10/17 08:24 98 Room Air 09/10/17 07:49 37.1 64 18 124/60 (81) 98 Room Air 09/10/17 07:45 Room Air 09/10/17 06:15 16 95 09/10/17 05:10 16 95 09/10/17 04:10 16 94 09/10/17 04:00 37.3 75 16 119/62 (81) 95 Room Air 09/10/17 03:15 16 96 09/10/17 02:15 16 95 09/10/17 01:13 16 93 09/10/17 00:15 16 95 09/09/17 23:45 Room Air 09/09/17 23:15 16 96 09/09/17 23:15 37.0 75 18 131/65 (87) 96 Room Air 09/09/17 22:15 16 96 09/09/17 21:15 16 96 09/09/17 20:15 18 97 09/09/17 19:41 37.1 97 16 156/83 (107) 97 Room Air 09/09/17 19:15 18 97 09/09/17 18:15 18 97 09/09/17 17:15 16 96 09/09/17 16:15 16 98 09/09/17 15:50 Room Air 09/09/17 15:32 34.8 50 18 163/78 (106) 99 Room Air 09/09/17 15:15 16 98 09/09/17 14:14 16 98 Lab Results: Results Past 24 Hours Test 09/09/17 16:56 09/09/17 20:30 09/10/17 05:42 09/10/17 07:57 Range/Units Bedside Glucose 184 124 129 70-99 mg/dl White Blood Count 17.00 4.8-10.8 K/uL Red Blood Count 3.96 4.7-6.1 M/uL Hemoglobin 11.6 14.0-18.0 g/dL Hematocrit 34.8 42-52 % Mean Corpuscular Volume 87.9 80-100 fL Mean Corpuscular Hemoglobin 29.3 25-34 pg Mean Corpuscular Hemoglobin Concent 33.3 32-36 g/dl Platelet Count 242 130-400 K/uL Mean Platelet Volume 9.3 7.4-10.4 fL Neutrophils (%) (Auto) 80.0 % Lymphocytes (%) (Auto) 10.2 % Monocytes (%) (Auto) 9.1 % Eosinophils (%) (Auto) 0.1 % Basophils (%) (Auto) 0.2 % Neutrophils # (Auto) 13.62 1.4-6.5 K/uL Lymphocytes # (Auto) 1.73 1.2-3.4 K/uL Monocytes # (Auto) 1.55 0.11-0.59 K/uL Eosinophils # (Auto) 0.01 0-0.5 K/uL Basophils # (Auto) 0.03 0-0.2 K/uL RDW Standard Deviation 51.4 36.4-46.3 fL RDW Coefficient of Variation 16.0 11.5-14.5 % Immature Granulocyte % (Auto) 0.4 % Immature Granulocyte # (Auto) 0.06 0.00-0.02 K/uL Large Platelets 1+ Poikilocytosis PRESENT Sodium Level 134 136-145 mmol/L Potassium Level 3.2 3.5-5.1 mmol/L Chloride Level 102 98-107 mmol/L Carbon Dioxide Level 24 21-32 mmol/L Anion Gap 9.0 3-11 mmol/L Blood Urea Nitrogen 25 7-18 mg/dl Creatinine 1.38 0.60-1.40 mg/dl Est Creatinine Clear Calc Drug Dose 38.5 ml/min Estimated GFR () 54.0 Estimated GFR (Non- 46.6 BUN/Creatinine Ratio 18.3 10-20 Random Glucose 141 70-99 mg/dl Calcium Level 7.9 8.5-10.1 mg/dl Thyroid Stimulating Hormone (TSH) 0.656 0.300-4.500 uIu/ml Test 09/10/17 12:07 Range/Units Bedside Glucose 151 70-99 mg/dl
[2017-09-10] MEDS: FLUTICASONE PROPIONATE NA SPR 16 GM BTL SCH (21:02)
[2017-09-10] MEDS: TRAVOPROST Z 0.004% OPH SOLN 2.5 ML BTL OPB SCH (21:04)
[2017-09-10] MEDS: SIMVASTATIN 10 MG TAB PO SCH (21:11)
[2017-09-10] MEDS: FELODIPINE 5 MG TABCR PO SCH (21:12)
[2017-09-10] MEDS: SENNA 8.6 MG TAB PO SCH (21:12)
[2017-09-11] MEDS: ACETAMINOPHEN 500 MG TAB PO SCH (05:35)
[2017-09-11] MEDS: LEVOTHYROXINE 100 MCG TAB PO SCH (05:35)
[2017-09-11 06:24] LABS: BUN/CREATININE RATIO 19.8 (10-20); CREATININE 1.59 mg/dl (0.60-1.40); POTASSIUM 3.6 mmol/L (3.5-5.1)
[2017-09-11 06:54] VITALS: BP 131/66; PULSE 67; TEMP 37.1; O2SAT 97
[2017-09-11] MEDS: LISINOPRIL 40 MG TAB PO SCH (07:27)
[2017-09-11] MEDS: FERROUS GLUCONATE 324 MG TAB PO SCH (07:27)
[2017-09-11] MEDS: DOCUSATE SODIUM 100 MG CAP PO SCH (07:27)
[2017-09-11] MEDS: PANTOprazole SOD 40 MG TAB PO SCH (07:28)
[2017-09-11] MEDS: MULTIVITAMIN TAB PO SCH (07:28)
[2017-09-11] MEDS: CARVEDILOL 12.5 MG TAB PO SCH (07:28)
[2017-09-11] MEDS: SPIRONOLACTONE 25 MG TAB PO SCH (07:28)
[2017-09-11] MEDS: ASPIRIN 325 MG ECTAB PO SCH (07:29)
[2017-09-11] MEDS: HYDROCHLOROTHIAZIDE 25 MG TAB PO SCH (07:29)
[2017-09-11] MEDS: DORZOLAMIDE/TIMOLOL 22.3/6.8MG/ML 10 ML BTL OPB SCH (07:31)
[2017-09-11] MEDS: FLUTICASONE HFA 110MCG INHALER INH SCH (07:31)
[2017-09-11] MEDS: INSULIN ASPART 100 UNITS/ML 3 ML PEN SC SCH (07:34)
--- NOTE | 2017-09-11 07:34 | PROGRESS NOTE ---
DATE: 09/11/2017 SUBJECTIVE: An 86-year-old gentleman postop day #2 from a right total hip replacement. He is doing well. Some pain in his thigh, but manageable. No chest pain or shortness of breath. Not feeling dizzy or lightheaded. OBJECTIVE: VITAL SIGNS: Temperature 37.1. Vital signs stable. GENERAL: Physical examination reveals a healthy pleasant elderly male. He is lying in bed and looks comfortable. He is awake, alert and oriented. EXTREMITIES: Examination of the right hip and leg reveals leg lengths to be equal. Thigh is soft and supple. Dressing is clean, dry, and intact. He is neurologically intact. He can dorsiflex and plantarflex his foot appropriately. ASSESSMENT: An 86-year-old male postop day #2 from a right total hip replacement, doing pretty well. His pain is controlled. His hip is located. He is neurologically intact. PLAN: 1. DVT prophylaxis including thigh-high TEDs, SCDs, and aspirin twice a day. 2. PT/OT. He can weightbear as tolerated. Right total hip protocol. 3. Pain control. Doing well with the current pain regimen. We are going limit narcotics to avoid confusion issues. 4. Disposition: Plan to discharge to home with some home health and family assistance.
[2017-09-11] MEDS: INSULIN GLARGINE SOLOSTAR 100 UNITS/ML 3 ML PEN SC SCH (07:35)
[2017-09-11 09:56] VITALS: BP 131/66; PULSE 67; TEMP 37.1; O2SAT 97
--- NOTE | 2017-09-18 08:00 | DISCHARGE SUMMARY ---
ADMITTING PHYSICIAN AND SURGEON: Sridhar Fields MD. ADMITTING DIAGNOSIS: Right hip degenerative joint disease. SURGERY PERFORMED: Right total hip arthroplasty. SECONDARY DIAGNOSES: Diabetes, hypothyroidism, elevated cholesterol, skin cancer, hypertension, asthma. CONSULTS: Michael Francis MD, postoperative medical management. HISTORY AND PHYSICAL EXAMINATION: Well documented in the patient's chart. HOSPITAL COURSE: The patient was admitted on 09/09/2017, underwent total hip arthroplasty, tolerated the procedure well. There were no complications. He was transferred to the PACU postoperatively and later to the orthopedic floor for further care. He was given Ancef for antibiotic prophylaxis, RAZA stockings, SCDs and aspirin for DVT prophylaxis. Hemoglobin, hematocrit and vital signs were monitored during his hospital stay and remained stable. He developed some mild postoperative anemia, did not require any blood transfusions. There were no complications. By postoperative day 2, he was tolerating a diabetic diet, pain was controlled with oral pain medicine. He was participating in physical therapy and had no signs or symptoms of deep vein thrombosis. On postop day 2, he was discharged home and set up with home health services. He was given printed discharge instructions as well as new prescriptions for extra strength Tylenol, aspirin 325 mg b.i.d. and tramadol. Continue his home medications with the exception of his home dose of aspirin. Continue physical therapy, weightbearing as tolerated. RAZA stockings, total hip precautions and follow up in 10-12 days or sooner if there are problems or concerns.
== END 2017-09-11 11:00 | disposition home health service (06) | DRG 470 ==
LOC: C.ACU 04:51 → C.3E 06:40 → ENRESERV 08:50
PROVIDERS: ADMIT Orthopaedic Surgery Sports Medicine; ATTEND Orthopaedic Surgery Sports Medicine
PROC: 0SR902A Replacement of Right Hip Joint with Metal on Polyethylene Synthetic Substitute, Uncemented, Open Approach (ICD-10-PCS; principal; 2017-09-09 07:00)
DX: M16.11 Unilateral primary osteoarthritis, right hip (principal); E11.9 Type 2 diabetes mellitus without complications; E03.9 Hypothyroidism, unspecified; Z85.828 Personal history of other malignant neoplasm of skin; I10 Essential (primary) hypertension; J45.909 Unspecified asthma, uncomplicated; Z79.84 Long term (current) use of oral hypoglycemic drugs; Z79.82 Long term (current) use of aspirin; Z82.49 Family history of ischemic heart disease and other diseases of the circulatory system; R00.1 Bradycardia, unspecified

== ENCOUNTER 2017-11-24 05:12 | Day surgery (SDC) | payer OTHER ==
[2017-11-06 12:26] VITALS: BMI 23.0
[~2017-11-24] VITALS: Ht 172.7 cm; Wt 70.5 kg
[~2017-11-24 05:12] MED LIST changes: -ASPI-461 PO; +ASPI81TA28 PO; -CARV25TA PO; +CRG25 PO; -HYDR-4717 PO; +HYDR25TA5 PO; -NAPR1TAB9 PO; -OMEG10002 PO; +SPIR25TA PO; -TRIA75TA53 PO
[2017-11-24 05:40] VITALS: BP 131/63; PULSE 67; TEMP 36.4; O2SAT 98; Ht 172.7 cm; Wt 70.5 kg
[2017-11-24] MEDS ORDERED: CEFAZOLIN 2000MG IV PUSH 15 ML IV SCH (06:00)
[2017-11-24] MEDS ORDERED: LACTATED RINGER'S 1000ML 1,000 ML IV SCH (06:00)
[2017-11-24] MEDS ORDERED: LIDOCAINE HCL 2% 2 ML VIAL (20MG/ML) ONE (06:51)
[2017-11-24] MEDS ORDERED: ONDANSETRON INJ 2 MG/ML 2 ML VIAL ONE (06:51)
[2017-11-24] MEDS ORDERED: PROPOFOL IV EMULSION 10 MG/ML 20 ML VIAL IV ONE (06:51)
[2017-11-24] MEDS ORDERED: FENTANYL CITRATE INJ 50 MCG/1 ML 2 ML VIAL ONE ×2 (06:52→08:35)
[2017-11-24] MEDS ORDERED: BACITRACIN OINT 15 GM TUBE ONE (07:06)
[2017-11-24] MEDS ORDERED: LIDOCAINE HCL 1% 20 ML VIAL ONE (07:06)
[2017-11-24] MEDS ORDERED: BUPIVACAINE 0.5 % 5 MG/1 ML MPF 30ML VIAL ONE (07:07)
[2017-11-24] MEDS ORDERED: ATROPINE SULFATE 0.1 MG/ML 5ML SYR IV PRN (07:30)
[2017-11-24] MEDS ORDERED: LABETALOL HCL IV 5 MG/ML 20ML IV PRN (07:30)
[2017-11-24] MEDS ORDERED: ONDANSETRON INJ 2 MG/ML 2 ML VIAL IV PRN ×2 (07:30→09:00)
[2017-11-24] MEDS ORDERED: FENTANYL CITRATE INJ 50 MCG/1 ML 2 ML VIAL IV PRN (07:30)
[2017-11-24] MEDS ORDERED: KETOROLAC TROMETHAMINE 30 MG/ML VIAL IV. PRN (07:30)
[2017-11-24] MEDS ORDERED: PHENYLEPHRINE 100MCG/ML 5ML SYR ONE (07:55)
[2017-11-24] MEDS ORDERED: EpHEDrine SULFATE 50MG/5ML SYR ONE (07:55)
[2017-11-24] MEDS ORDERED: GLYCOPYRROLATE INJ 0.2 MG/ML VIAL ONE (08:04)
--- NOTE | 2017-11-24 08:37 | [facility] Post Operative Brief Note ---
Immediate Operative Summary Operative Date Nov 24, 2017. Pre-Operative Diagnosis Left inguinal hernia Post-Operative Diagnosis Left inguinal hernia Procedure(s) Performed Open Repair Left Inguinal Hernia with Mesh Surgeon Dr. Howard Bell Attendant Surgeon(s) Tiara Ramires PA-C Estimated Blood Loss 5 cc Findings Consistent with Post-Op Diagnosis left indirect inguinal hernia, resection lipoma Fluids (cc crystalloids) 900ml Specimens A: lypoma of cord Drains None Anesthesia Type MAC Complication(s) none Disposition Accompanied Pt To Recover: yes Disposition: Recovery Room / PACU
--- NOTE | 2017-11-24 08:47 | Discharge Instructions ---
Discharge Instructions Date of Service Nov 24, 2017. Admission Reason for Admission: Left Inguinal Hernia Discharge Discharge Diagnosis / Problem: same Discharge Goals Goal(s): Decrease discomfort, Improve function Activity Recommendations Activity Limitations: as noted below No heavy lifting over 10 pounds for 4-6 weeks No strenuous activity until cleared by surgeon No submerging incisions underwater for 2 weeks or until healed (no bathing, swimming, or hot tubs) No driving while taking narcotic pain medication or until you are pain free . Instructions / Follow-Up Instructions / Follow-Up You may shower in 4 days, sponge bath and wash hair in meantime Remove outer dressing after 4 days and then shower. Replace dressing as needed. Leave steri strips on incision for 7 days and then remove. They may fall off on their own that is okay. Walking and light activity is encouraged to prevent blood clots from forming in legs You will be given prescription for narcotic pain medication (Percocet) as needed for moderate to severe pain. You may take extra strength Tylenol or Ibuprofen as needed for mild pain. Follow-up in surgical office in 1-2 weeks as scheduled, please call office at [phone] if you do not already have an appointment Narcotic pain medication can cause constipation. You may take OTC stool softener (such as Colace) as needed for constipation. Drink plenty of water daily. Current Hospital Diet Patient's current hospital diet: Discharge Diet Recommended Diet: Regular Diet Procedures Procedures Performed: Open Repair Left Inguinal Hernia with Mesh Pending Studies Studies pending at discharge: yes List of pending studies: Pathology- lipoma of cord will be reviewed at follow up visit Medical Emergencies . Who to Call and When: Medical Emergencies: If at any time you feel your situation is an emergency, please call 911 immediately. . Non-Emergent Contact Non-Emergency issues call your: Primary Care Provider, Surgeon Call Non-Emergent contact if: you have a fever, temperature is above 101, your pain is not controlled, your pain is worsening, your pain is unusual for you, wound has increased drainage, wound has increased redness, wound has increased pain . "Provider Documentation" section prepared by Tiara Ramires. . VTE Core Measure Inpt VTE Proph given/why not?: SCD's [place] Drug Monitoring Program Search Results: patient reviewed within database, no issues identified
[2017-11-24] MEDS ORDERED: OXYC-57 PO (08:48)
[2017-11-24] MEDS ORDERED: MoRPHine SULFATE 2 MG/ML CARP IV PRN ×2 (09:00)
[2017-11-24] MEDS ORDERED: ACETAMINOPHEN 325 MG TAB PO PRN (09:00)
[2017-11-24] MEDS ORDERED: OXYCODONE/ACETAMINOPHEN 5-325 TAB PO PRN ×2 (09:00)
[2017-11-24] MEDS ORDERED: MoRPHine SULFATE 4 MG/ML 1 ML CARP\\VIAL IV PRN (09:00)
--- NOTE | 2017-11-24 09:17 | OPERATIVE REPORT ---
DATE OF OPERATION: 11/24/2017 PREOPERATIVE DIAGNOSIS: Left inguinal hernia. POSTOPERATIVE DIAGNOSIS: Same. OPERATION: Open repair, left inguinal hernia with mesh. SURGEON: Jimenez Howard MD. PITCH WORKER: FLAVIO Landa. ANESTHESIA: LMA with local. ESTIMATED BLOOD LOSS: About 5 mL. FINDINGS: Left indirect hernia and resection of lipoma. COMPLICATIONS: None. INDICATIONS FOR THE PROCEDURE: This is an 87-year-old gentleman who presented with symptomatic left inguinal hernia. The patient will be required to do open repair, left inguinal hernia with mesh. I did talk to the patient about the benefit and risk, alternate procedure. I indicated the risks may include but not limited such as bleeding, infection, hernia recurrence, chronic incision pain, myocardial infarction, DVT, stroke, even . The patient and patient's family member understands. The patient signed and informed consent and I answered all questions. DETAILS OF PROCEDURE: We brought the patient to the OR, put the patient in the supine position. The patient received SCD on bilateral legs to prevent DVT. Also, the patient received 2 grams Ancef IV for prophylactic antibiotic. The patient received general anesthesia by the anesthesiology without difficulty. In order to control better airway, patient received LMA. The patient's abdomen and low pelvic area was prepped and draped in routine sterile fashion. After a timeout, I injected local anesthesia by using 1% lidocaine mixed with 0.5% Marcaine on the left inguinal area. Then I made about a 4 cm incision above his left inguinal area and opened the skin, subcutaneous layer and exposed the external oblique. Then I made an incision in the external oblique. The nerves were identified and protected all the time. Then I mobilized the cord structure, put a [place] over the cord structure. Then the hernia sac was identified and mobilized. The patient had indirect large hernia sac. We completely reduced the hernia sac back to the abdominal cavity. Then I chose extra large plug to block the hernia sac and reverse the hernia sac. Then used 2-0 Prolene to close the hernia neck and then I chose 3 x 5 cm mesh to reinforce the posterior wall and used 2-0 Prolene mesh to the inguinal ligament continuing running and then I used another 2-0 Prolene mesh to the conjoined tendon continuous running to suture meeting together tied. The mesh sat nicely. Hemostasis was obtained. Then I used 2-0 Vicryl, closed the external oblique with continuous running, closed subcutaneous layer by using 2-0 Vicryl continuous running, closed skin by using 4-0 Vicryl continuous running. Then we put the dressing on. The patient tolerated the procedure well. All instrument, needle and sponge count were correct x2 at the end of case and also I want to mention during the procedure, the patient had 1 large lipoma on the cord structure. So, I ligated the lipoma and resected lipoma and sent to pathology. Then the patient transferred to recovery room in stable condition. After the procedure, I did talk to the patient's family member about the OR finding and procedure we did. Also, gave them the postop care instruction, they understand. I attest to the content of the Intraoperative Record and any orders documented therein. Any exception s are noted below.
[2017-11-24 09:25] VITALS: BP 131/76; PULSE 74; TEMP 36.4; O2SAT 98
[2017-11-24 09:55] VITALS: BP 142/75; PULSE 86; TEMP 36.4; O2SAT 98
--- NOTE | 2017-11-24 09:58 | Anesthesia Progress Nt - [facility] ---
Anesthesia Post Op Note Date & Time Nov 24, 2017 at 09:58 Vital Signs Pain Intensity: 0 Vital Signs Past 12 Hours Date Time Temp Pulse Resp B/P (MAP) Pulse Ox O2 Delivery O2 Flow Rate FiO2 11/24/17 09:25 36.4 74 22 131/76 98 Room Air 11/24/17 09:20 36.6 72 22 126/78 99 Room Air 11/24/17 09:10 77 16 124/73 100 Room Air 11/24/17 09:00 82 16 126/75 100 Oxymask 5 11/24/17 08:50 75 16 115/67 99 Oxymask 5 11/24/17 08:44 36.1 75 16 105/61 99 Oxymask 10 11/24/17 05:40 36.4 67 18 131/63 (85) 98 Room Air Notes Mental Status: alert / awake / arousable, participated in evaluation Pt Amnestic to Procedure: Yes Nausea / Vomiting: adequately controlled Pain: adequately controlled Airway Patency, RR, SpO2: stable & adequate BP & HR: stable & adequate Hydration State: stable & adequate Anesthetic Complications: no major complications apparent
[2017-11-25] MEDS ORDERED: CEFAZOLIN SOD 2000MG/15 ML IV PUSH IV ONE (06:00)
== END 2017-11-24 10:30 | disposition home or self-care (01) ==
LOC: C.ACU 05:12
PROVIDERS: ATTEND Surgery
DX: K40.90 Unilateral inguinal hernia, without obstruction or gangrene, not specified as recurrent (principal); H40.1190 Primary open-angle glaucoma, unspecified eye, stage unspecified; E03.9 Hypothyroidism, unspecified; E11.9 Type 2 diabetes mellitus without complications; E78.5 Hyperlipidemia, unspecified; N18.3 Chronic kidney disease, stage 3 (moderate); I12.9 Hypertensive chronic kidney disease with stage 1 through stage 4 chronic kidney disease, or unspecified chronic kidney disease; G57.11 Meralgia paresthetica, right lower limb; Z85.828 Personal history of other malignant neoplasm of skin

== ENCOUNTER 2020-07-21 19:11 | Inpatient (IN) ==
[2020-07-21] MEDS ORDERED: SODIUM CHLORIDE 0.9% 500 ML IV ONE (19:29)
--- NOTE | 2020-07-21 19:32 | Emergency Department Note ---
Impression & Plan Hyponatremia, CKD (chronic kidney disease), stage III, HTN (hypertension) ED Provider Note NAME: DC BEAN AGE: 89 SEX: M ARRIVES VIA: Walk-In INFORMANT: Patient, ED PROVIDER(S): Eber Paez MD CHIEF COMPLAINT: Referred by , hyponatremia PLAN: Disposition: Admit MEDICAL DECISION MAKING: The patient is a pleasant 89-year-old gentleman with a past medical history of CKD, diabetes, hypertension, hyperlipidemia who presents with department accompanied by his daughter for evaluation after being referred by his nephrolo gist for hyponatremia with sodium of 122 which is suspected to be related to his hydrochlorothiazide however was concerning the low to be managed outpatient. The patient himself denies any symptoms including denies confusion, dizziness, fatigue, weakness. He additionally denies any fevers, chills, cough, congestion, chest pain, shortness of breath, nausea, vomiting, diarrhea, urinary symptoms. On arrival the patient is well-appearing in no acute distress, afebrile stable vital signs. Exam is otherwise unremarkable. WBC and platelets within normal limits. H/H 13.0/36.6 approximate 2 prior v alues. Sodium 123. Creatinine 1.6 similar to prior range of values. Glucose 142 and electrolytes and LFTs otherwise unremarkable. Serum osmolality 264 with urine osmolality 311. Given the patient's significantly low sodium, while asymptomatic reasonable to admit for further management per his student assistance counselor recommendation. Ultimately, the patient and his daughter are agreeable. [facility] for [facility]. Triage Nursing notes reviewed and agree them. Additional history obtained from [facility] records Prior medical records reviewed Vital Signs: reviewed and remarkable for no significant abnormalities Differential diagnosis: Infection, dehydration, metabolic abnormality, hypo/hyperglycemia, electrolyte disturbance, anemia, hypoxia, cardiac sources, intracerebral event, toxicologic, neurologic, as well as other pathologies. ER treatment provided: See below. Diagnostics interpreted by me: Cardiac Monitoring: An order for continuous cardiac monitoring was placed and demonstrated sinus bradycardia, 58 bpm, no ectopy. Laboratory studies: See below Consultation(s): Case was [facility] who will [facility] the patient for admission. HPI: The patient is a pleasant 89-year-old gentleman with a past medical history of CKD, diabetes, hypertension, hyperlipidemia who presents with department accompanied by his daughter for evaluation after being referred by his student assistance counselor for hyponatremia with sodium of 122 which is suspected to be related to his hydrochlorothiazide however was concerning the low to be managed outpatient. The patient himself denies any symptoms including denies confusion, dizziness, fatigue, weakness. He additionally denies any fevers, chills, cough, congestion, chest pain, shortness of breath, nausea, vomiting, diarrhea, urinary symptoms. ROS: See above HPI for pertinent positives & negatives. A total of 10 systems reviewed and were otherwise negative. PAST MEDICAL HISTORY:See Below PAST SURGICAL HISTORY:See Below FAMILY HISTORY:See Below SOCIAL HISTORY:See Below HOME MEDICATIONS:See Below ALLERGIES:See Below VITALS:See Below PHYSICAL EXAMINATION: GENERAL: Awake, alert, well-appearing, in no distress HENT: Normocephalic, atraumatic. Oropharynx with dry mucous membranes and otherwise unremarkable. EYES: Normal conjunctiva. Sclera non-icteric. NECK: Supple. No nuchal rigidity. FROM. No JVD. RESPIRATORY: Clear to auscultation. CARDIAC: Regular rate, normal rhythm. Extremities warm and well perfused. Pulses equal. ABDOMEN: Soft, non-distended. No tenderness to palpation. No rebound or guarding. No masses. RECTAL: Deferred. MUSCULOSKELETAL: Chest examination reveals no tenderness. The back is symmetrical on inspection without obvious abnormality. There is no CVA tenderness to palpation. No joint edema. LOWER EXTREMITIES: Calves are equal size bilaterally and non-tender. No edema. No discoloration. NEURO: Normal sensorium. No sensory or motor deficits noted. SKIN: No rash or jaundice noted. Eber Paez MD Past Med/Surg History Medical History Asthma Chronic rhinitis CKD (chronic kidney disease), stage III DM type 2 (diabetes mellitus, type 2) Glaucoma Hx of basal cell carcinoma Hypertension Hypothyroidism Surgical History H/O hernia repair Family History Other Heart disease Social History Smoking Status: Never smoker Second Hand Exposure: No; Hx Alcohol Use: No Hx Substance Use: No Preferred Language: Kiswahili Communication Ability: Effective Latex Fashions Designer Required: No Beliefs That Will Affect Care: None marital status: / Current Living Situation: Alone Other Information That Helps Us Care for You: No Feels Safe at Home: Yes Safety Concerns: Feels Safe At This Time Assistive Devices: None Allergies Allergies Allergy/AdvReac Type Severity Reaction Status Date / Time No Known Allergies Allergy Verified 12/06/19 09:36 Home Meds Home Medications Medication Instructions Recorded Confirmed Complete Prostate 2 tab PO QDD 07/21/20 07/21/20 aspirin [Aspir-81] 81 mg PO QDD 07/21/20 07/21/20 carvedilol 12.5 mg PO BIDM 07/21/20 07/21/20 docusate sodium [Colace] 100 mg PO HS 07/21/20 07/21/20 dorzolamide-timolol 1 drp OPB BID 07/21/20 07/21/20 felodipine 10 mg PO QAM 07/21/20 07/21/20 fluticasone propionate 1 spray INTRANASAL HS PRN 07/21/20 07/21/20 fluticasone propionate [Flovent 2 puff INHALATION BID 07/21/20 07/21/20 HFA] hydrochlorothiazide 25 mg PO QAM 07/21/20 07/21/20 levothyroxine 100 mcg PO QAM 07/21/20 07/21/20 lisinopril 40 mg PO QAM 07/21/20 07/21/20 metformin 500 mg PO BIDM 07/21/20 07/21/20 [id number]-[id number]-uhrib-vit K-lycop 1 tab PO QDL 07/21/20 07/21/20 [Men's Multivitamin] prednisolone acetate 1 drp OPL QAM 07/21/20 07/21/20 simvastatin 10 mg PO HS 07/21/20 07/21/20 sodium chloride 1 drp OPB QID 07/21/20 07/21/20 spironolactone 25 mg PO QAM 07/21/20 07/21/20 travoprost 1 drp OPB HS 07/21/20 07/21/20 Results & Data (ED) Vital Signs Vital Signs - 24 hr 07/21/20 19:14 07/21/20 19:58 07/21/20 20:41 Temperature 36.9 C Temperature Source Oral Pulse Rate 63 76 Pulse Rate [Apical] 55 L Pulse Rate from SpO2 Sensor Pulse Rhythm Regular Pulse Rhythm [Apical] Regular Pulse Strength Normal Respiratory Rate 18 18 20 Respiratory Effort / Characteristics Non-Labored Non-Labored Respiratory Depth Normal Normal Respiratory Pattern Regular Regular Blood Pressure 145/88 H 157/90 H Blood Pressure [Right Arm] 123/67 Blood Pressure Mean 107 101 Blood Pressure Mean [Right Arm] 85 Blood Pressure Position Sitting Blood Pressure Position [Right Arm] Sitting Pulse Oximetry 97 98 Oxygen Delivery Method Room Air Room Air Sepsis Recent Fever Within 48 Hours No Sepsis New/Unexplained Change in Mental Status N/A Sepsis Action Taken by Nursing No Action Required 07/21/20 21:00 07/21/20 21:30 07/21/20 22:30 Temperature Temperature Source Pulse Rate 51 L 52 L 52 L Pulse Rate [Apical] Pulse Rate from SpO2 Sensor 52 L 52 L 53 L Pulse Rhythm Pulse Rhythm [Apical] Pulse Strength Respiratory Rate 17 21 22 Respiratory Effort / Characteristics Respiratory Depth Respiratory Pattern Blood Pressure 127/69 125/67 119/73 Blood Pressure [Right Arm] Blood Pressure Mean 87 84 86 Blood Pressure Mean [Right Arm] Blood Pressure Position Blood Pressure Position [Right Arm] Pulse Oximetry 98 98 98 Oxygen Delivery Method Sepsis Recent Fever Within 48 Hours Sepsis New/Unexplained Change in Mental Status Sepsis Action Taken by Nursing Laboratory Data Attestation: I reviewed the patient's lab results. Result diagrams: 07/22/20 05:48 Lab Results 07/21/20 07/21/20 07/21/20 Range/Units 19:40 19:40 19:40 WBC 8.83 (4.8-10.8) K/uL RBC 4.28 L (4.7-6.1) M/uL Hgb 13.0 L (14.0-18.0) g/dL Hct 36.6 L (42-52) % MCV 85.5 (80-100) fL MCH 30.4 (25-34) pg MCHC 35.5 (32-36) g/dL RDW Std Deviation 46.8 H (36.4-46.3) fL RDW Coeff of Randal 15.2 H (11.5-14.5) % Plt Count 268 (130-400) K/uL MPV 8.5 (7.4-10.4) fL Immature Gran % (Auto) 0.8 % Neut % (Auto) 58.9 % Lymph % (Auto) 16.9 % Placer % (Auto) 11.0 % Eos % (Auto) 11.8 % Baso % (Auto) 0.6 % Neut # (Auto) 5.21 (1.4-6.5) K/uL Lymph # (Auto) 1.49 (1.2-3.4) K/uL Placer # (Auto) 0.97 H (0.11-0.59) K/uL Eos # (Auto) 1.04 H (0-0.5) K/uL Baso # (Auto) 0.05 (0-0.2) K/uL Immature Gran # (Auto) 0.07 H (0.00-0.02) K/uL Sodium 123 L (136-145) mmol/L Potassium 4.2 (3.5-5.1) mmol/L Chloride 92 L (98-107) mmol/L Carbon Dioxide 22 (21-32) mmol/L Anion Gap 9.0 (3-11) BUN 27 H (7-18) mg/dl Creatinine 1.63 H (0.6-1.4) mg/dl Est Cr Clr Drug Dosing 29.9 ml/min Est GFR ( Amer) 43.3 Est GFR (Non-Af Amer) 37.3 BUN/Creatinine Ratio 16.6 (10-20) Glucose 142 H (70-99) mg/dl Osmolality 264 L (280-300) mOsm/kg Calcium 8.8 (8.5-10.1) mg/dl Phosphorus 3.8 (2.5-4.9) mg/dl Magnesium 1.9 (1.8-2.4) mg/dl Total Bilirubin 0.5 (0.2-1) mg/dl AST 17 (15-37) U/L ALT 19 (12-78) U/L Alkaline Phosphatase 73 (45-117) U/L Total Protein 7.9 (6.4-8.2) gm/dl Albumin 3.6 (3.4-5.0) gm/dl Globulin 4.3 H (2.5-4.0) gm/dl Albumin/Globulin Ratio 0.8 L (0.9-2) Lipase 190 (73-393) U/L TSH 1.700 (0.300-4.500) uIu/ml Specimen Hemolysis Urine Color Urine Appearance (Clear) Urine pH (4.5-7.5) Ur Specific [place] (1.000-1.030) Urine Protein (Negative) Urine Glucose (UA) (Negative) Urine Ketones (Negative) Urine Blood (Negative) Urine Nitrite (Negative) Urine Bilirubin (Negative) Urine Urobilinogen (Negative) Ur Leukocyte Esterase (Negative) Urine Osmolality (500-800) mOsm/kg 07/21/20 07/21/20 07/21/20 Range/Units 19:40 20:45 20:45 WBC (4.8-10.8) K/uL RBC (4.7-6.1) M/uL Hgb (14.0-18.0) g/dL Hct (42-52) % MCV (80-100) fL MCH (25-34) pg MCHC (32-36) g/dL RDW Std Deviation (36.4-46.3) fL RDW Coeff of Randal (11.5-14.5) % Plt Count (130-400) K/uL MPV (7.4-10.4) fL Immature Gran % (Auto) % Neut % (Auto) % Lymph % (Auto) % [place] % (Auto) % Eos % (Auto) % Baso % (Auto) % Neut # (Auto) (1.4-6.5) K/uL Lymph # (Auto) (1.2-3.4) K/uL [place] # (Auto) (0.11-0.59) K/uL Eos # (Auto) (0-0.5) K/uL Baso # (Auto) (0-0.2) K/uL Immature Gran # (Auto) (0.00-0.02) K/uL Sodium (136-145) mmol/L Potassium (3.5-5.1) mmol/L Chloride (98-107) mmol/L Carbon Dioxide (21-32) mmol/L Anion Gap (3-11) BUN (7-18) mg/dl Creatinine (0.6-1.4) mg/dl Est Cr Clr Drug Dosing ml/min Est GFR ( Amer) Est GFR (Non-Af Amer) BUN/Creatinine Ratio (10-20) Glucose (70-99) mg/dl Osmolality (280-300) mOsm/kg Calcium (8.5-10.1) mg/dl Phosphorus (2.5-4.9) mg/dl Magnesium (1.8-2.4) mg/dl Total Bilirubin (0.2-1) mg/dl AST (15-37) U/L ALT (12-78) U/L Alkaline Phosphatase (45-117) U/L Total Protein (6.4-8.2) gm/dl Albumin (3.4-5.0) gm/dl Globulin (2.5-4.0) gm/dl Albumin/Globulin Ratio (0.9-2) Lipase (73-393) U/L TSH Cancelled (0.300-4.500) uIu/ml Specimen Hemolysis Urine Color Yellow Urine Appearance Clear (Clear) Urine pH 5.5 (4.5-7.5) Ur Specific [place] 1.010 (1.000-1.030) Urine Protein Negative (Negative) Urine Glucose (UA) Negative (Negative) Urine Ketones Negative (Negative) Urine Blood Negative (Negative) Urine Nitrite Negative (Negative) Urine Bilirubin Negative (Negative) Urine Urobilinogen Negative (Negative) Ur Leukocyte Esterase Negative (Negative) Urine Osmolality 311 L (500-800) mOsm/kg Administered Medications Carvedilol (Carvedilol 12.5 Mg Tab) 12.5 mg PO BIDM [facility] Stop: 08/21/20 07:59 Last Admin: 07/22/20 08:22 Dose: 12.5 mg Documented by: [id number] Dorzolamide/Timolol (Dorzolamide/Timolol 22.3/6.8mg/Ml 10 Ml Btl) 1 drops OPB BID [facility] Stop: 08/21/20 08:59 Last Admin: 07/22/20 08:23 Dose: 1 drops Documented by: [id number] Felodipine (Felodipine 5 Mg Tabcr) 10 mg PO QAM [facility] Stop: 08/21/20 08:59 Last Admin: 07/22/20 08:23 Dose: 10 mg Documented by: [id number] Fluticasone Furoate (Fluticasone Furoate 200mcg 14 Puffs/Inhaler) 1 puffs INH DAILY [facility] Stop: 08/21/20 08:59 Last Admin: 07/22/20 08:22 Dose: 1 puffs Documented by: [id number] Heparin Sodium (Porcine) (Heparin Sod 5,000 Unit/0.5 Ml Vial) 5,000 units SQ Q8 [facility] Stop: 08/21/20 13:59 Last Admin: 07/22/20 14:01 Dose: 5,000 units Documented by: [id number] Cosigned by: [id number] Insulin Aspart (Insulin Aspart 100 Units/Ml 3 Ml Pen) 0 units SC ACHS [facility] Stop: 08/21/20 01:15 Last Admin: 07/22/20 12:29 Dose: 1 units Documented by: [id number] Cosigned by: [id number] Admin: 07/22/20 08:23 Dose: 2 units Documented by: [id number] Cosigned by: [id number] Admin: 07/22/20 02:04 Dose: Not Given Documented by: [id number] Miscellaneous (Sodium Chloride 2% Op: Order Awaiting Action) 1 ea N/A QS [facility] Stop: 08/21/20 07:59 Last Admin: 07/22/20 08:20 Dose: Not Given Documented by: [id number] Multivitamins/Minerals (Cerovite Adv Formula Tab) 1 tab PO QDL [facility] Stop: 08/21/20 11:29 Last Admin: 07/22/20 08:23 Dose: 1 tab Documented by: [id number] Prednisolone Acetate (Prednisolone Acetate 1% Op Susp 5 Ml Btl) 1 drops OP QAM [facility] Stop: 08/21/20 08:59 Last Admin: 07/22/20 08:23 Dose: 1 drops Documented by: [id number] Discontinued Medications Sodium Chloride (Nss) 500 mls @ 999 mls/hr IV .Q31M ONE Stop: 07/21/20 19:59 Last Infusion: 07/21/20 20:17 Dose: 0 mls/hr Documented by: [id number] Admin: 07/21/20 19:44 Dose: 999 mls/hr Documented by: [id number] Levothyroxine Sodium (Levothyroxine Sodium 100 Mcg Tablet) 100 mcg PO QAM [facility] Stop: 08/21/20 08:59 Last Admin: 07/22/20 08:23 Dose: 100 mcg Documented by: [id number] Discharge Plan Visit Data Chief Complaint: Abnormal Labs/Diagnostic Testing Stated Complaint: LOW SODIUM ED Provider: Eber Paez Discharge Problem: Hyponatremia, CKD (chronic kidney disease), stage III, HTN (hypertension) Patient Disposition: Admitted As Inpatient Discharge Instructions Interventions: ED Discharge Assessment Last Done: 07/22/20 00:34
[2020-07-21 20:04] LABS: Basophils # (auto) 0.05 K/uL (0-0.2); Basophils % (auto) 0.6 %; Eosinophils # (auto) 1.04 K/uL (0-0.5); Eosinophils % (auto) 11.8 %; Hematocrit (blood only) 36.6 % (42-52); Immature Granulocytes # (auto) 0.07 K/uL (0.00-0.02); Immature Granulocytes % (auto) 0.8 %; Lymphocytes # (auto) 1.49 K/uL (1.2-3.4); Lymphocytes % (auto) 16.9 %; Mean Corpuscular Hemoglobin 30.4 pg (25-34); Mean Corpuscular Hgb Conc 35.5 g/dL (32-36); Mean Corpuscular Volume 85.5 fL (80-100); Mean Platelet Volume 8.5 fL (7.4-10.4); Monocytes # (auto) 0.97 K/uL (0.11-0.59); Neutrophils # (auto) 5.21 K/uL (1.4-6.5); Neutrophils % (auto) 58.9 %; Platelet Count 268 K/uL (130-400); RDW Coefficient of Variation 15.2 % (11.5-14.5); RDW Standard Deviation 46.8 fL (36.4-46.3); Red Blood Count 4.28 M/uL (4.7-6.1); White Blood Count 8.83 K/uL (4.8-10.8)
[2020-07-21 20:37] LABS: Albumin Globulin Ratio 0.8 (0.9-2); Albumin Level 3.6 gm/dl (3.4-5.0); BUN Creatinine Ratio 16.6 (10-20); Bilirubin,Total 0.5 mg/dl (0.2-1); Calcium 8.8 mg/dl (8.5-10.1); Creatinine Clr Calc Pharmacy 29.9 ml/min; Est GFR (African American) 43.3; Est GFR (Non-African American) 37.3; Globulin 4.3 gm/dl (2.5-4.0); Magnesium 1.9 mg/dl (1.8-2.4); Phosphorus 3.8 mg/dl (2.5-4.9); Potassium 4.2 mmol/L (3.5-5.1); Total Protein 7.9 gm/dl (6.4-8.2)
[2020-07-21 20:58] LABS: Appearance Urine Clear (Clear); Bilirubin Urine Negative (Negative); Blood Urine Negative (Negative); Color Urine Yellow; Glucose Urine UA Negative (Negative); Ketones Urine Negative (Negative); Leukocyte Esterase Urine Negative (Negative); Nitrite Urine Negative (Negative); Protein Urine Negative (Negative); Urobilinogen Urine Negative (Negative); pH Urine 5.5 (4.5-7.5)
--- NOTE | 2020-07-21 22:30 | History & Physical Report ---
Date of Service July 21, 2020 Assessment & Plan (1) Hyponatremia: Please refer to Dr. Palomares's addendum for assessment and plan. History of Present Illness Chief Complaint: Referred by nephrology for hyponatremia Primary Care Provider: Scott Gasca MD 89-year-old male with PMH DM type II, hypothyroidism, HTN, CKD stage III, and other problems listed below who was referred to the ED by outpatient landscape technician for evaluation of hyponatremia. Patient reports he has been feeling well recently. Reports he continues to be very active, gardens in the summertime. He has been staying home recently however due to the pandemic. He has a daughter and son that helps him with his needs. Patient denies chest pain shortness of breath. No lightheadedness, dizziness, diaphoresis, syncopal events. No abdominal pain, nausea, vomiting, diarrhea. Denies any other recent illnesses, fevers, chills. No urinary symptoms. Patient reports a 10 pound intentional weight loss over the past couple of months. Patient reports that about 2 years ago, he cut out all salt from his diet due to problems with high blood pressure. He was evaluated by cardiology 03/2020 and was instructed to increase his water intake. Patient reports he drinks about 6-8 8 ounces glasses of water a day and 2 cups of coffee. Outpatient records show Na+ 122 05/04/2020 and repeat lab set on 07/17/2020 demonstrated Na+ 122 again. Nephrology recommended the patient come to the hospital for management of hyponatremia. In the ED, patient is hemodynamically stable. Labs show Na+ 123, otherwise unremarkable/at patient's baseline. Allergies Allergy/AdvReac Type Severity Reaction Status Date / Time No Known Allergies Allergy Verified 12/06/19 09:36 Home Medications Home Medications Medication Instructions Recorded Confirmed Type Complete Prostate 2 tab PO QDD 07/21/20 07/21/20 History aspirin [Aspir-81] 81 mg PO QDD 07/21/20 07/21/20 History carvedilol 12.5 mg PO BIDM 07/21/20 07/21/20 History docusate sodium [Colace] 100 mg PO HS 07/21/20 07/21/20 History dorzolamide-timolol 1 drp OPB BID 07/21/20 07/21/20 History felodipine 10 mg PO QAM 07/21/20 07/21/20 History fluticasone propionate 1 spray INTRANASAL HS PRN 07/21/20 07/21/20 History fluticasone propionate [Flovent 2 puff INHALATION BID 07/21/20 07/21/20 History HFA] hydrochlorothiazide 25 mg PO QAM 07/21/20 07/21/20 History levothyroxine 100 mcg PO QAM 07/21/20 07/21/20 History lisinopril 40 mg PO QAM 07/21/20 07/21/20 History metformin 500 mg PO BIDM 07/21/20 07/21/20 History ditikgpa-pth-hzjqv-vit K-lycop 1 tab PO QDL 07/21/20 07/21/20 History [Men's Multivitamin] prednisolone acetate 1 drp OPL QAM 07/21/20 07/21/20 History simvastatin 10 mg PO HS 07/21/20 07/21/20 History sodium chloride 1 drp OPB QID 07/21/20 07/21/20 History spironolactone 25 mg PO QAM 07/21/20 07/21/20 History travoprost 1 drp OPB HS 07/21/20 07/21/20 History Past Med/Surg History Medical History Asthma Chronic rhinitis CKD (chronic kidney disease), stage III DM type 2 (diabetes mellitus, type 2) Glaucoma Hx of basal cell carcinoma Hypertension Hypothyroidism Surgical History H/O hernia repair Family History Other Heart disease Social History Smoking Status: Never smoker Second Hand Exposure: No; Hx Alcohol Use: No Hx Substance Use: No Preferred Language: Mosotho Communication Ability: Effective Candy Separator Hard Required: No Beliefs That Will Affect Care: None marital status: / Current Living Situation: Alone Other Information That Helps Us Care for You: No Feels Safe at Home: Yes Safety Concerns: Feels Safe At This Time Assistive Devices: Cane, Denture - Upper, Glasses, Hearing Aid - Bilateral, Hearing Aid - Left and Hearing Aid - Right Review of Systems Review of Systems: ROS per HPI, all other systems reviewed and negative Physical Exam Constitutional: WD/WN, vitals as above Eyes: PERRL, conjunctivae normal, anicteric sclerae ENMT: external ear and nose normal, oropharynx normal Respiratory: normal respiratory effort, lungs clear to auscultation Cardiovascular: Rate/Rhythm: regular rate and regular rhythm Vessels: normal peripheral pulses Extremities: no edema Gastrointestinal (Abdomen): normal bowel sounds, soft, nontender, no hepatosplenomegaly Musculoskeletal: no cyanosis or clubbing, extremities motor strength 5/5 Skin: no rashes, warm and dry Neurologic: PERRL, EOMI, accommodation nl, no face palsy, no dysarthria Psychiatric: A+Ox3, euthymic affect Results & Data Results & Data ([facility]) Vital Signs (Past 12 Hours) Vital Signs Temp Pulse Pulse Resp BP BP Pulse Ox 07/21/20 21:30 52 L 21 125/67 98 07/21/20 21:00 51 L 17 127/69 98 07/21/20 20:41 76 20 157/90 H 07/21/20 19:58 55 L 18 123/67 98 07/21/20 19:14 36.9 C 63 18 145/88 H 97 Laboratory Results Short CBC 07/21/20 Range/Units 19:40 WBC 8.83 (4.8-10.8) K/uL Hgb 13.0 L (14.0-18.0) g/dL Hct 36.6 L (42-52) % Plt Count 268 (130-400) K/uL BMP 07/21/20 19:40 Sodium 123 L Potassium 4.2 Chloride 92 L Carbon Dioxide 22 BUN 27 H Creatinine 1.63 H Glucose 142 H Calcium 8.8 Liver Function 07/21/20 Range/Units 19:40 Total Bilirubin 0.5 (0.2-1) mg/dl AST 17 (15-37) U/L ALT 19 (12-78) U/L Alkaline Phosphatase 73 (45-117) U/L Albumin 3.6 (3.4-5.0) gm/dl Urine 07/21/20 Range/Units 20:45 Urine Color Yellow Urine Appearance Clear (Clear) Urine pH 5.5 (4.5-7.5) Ur Specific [place] 1.010 (1.000-1.030) Urine Protein Negative (Negative) Urine Glucose (UA) Negative (Negative) Supervising Physician Co-Signing Physician Notes IM ATTENDING : Patient seen and examined. History obtained from patient, family, and records. Preceding documentation by ANGEL Leroy reviewed. In addition, stool Hemoccult done at bedside noted to be negative. Last colonoscopy was about 10 years ago which showed polyps as per patient. FINAL ASSESSMENT AND PLAN as follows : Acute on chronic hyponatremia Hx HCTZ intake Hypertension, slight elevated COPD as per records, pulmonary status stable PVD as per records CRI, serum creatinine close to baseline Hypothyroidism, euthyroid as of today's TSH New onset anemia DM2 on oral medications, well-controlled as of recent outpatient hemoglobin A1c of 6.16 March 2020 Medical telemetry Recheck serum sodium after fluid bolus given at the ER DC HCTZ Nephrology consult RE hyponatremia Anemia work-up, transfuse PRBC if hemoglobin less than 8 and or for symptomatic anemia (hx PVD as per records) ISS BG goal [id number] DVT prophylaxis. Heparin subcu Full code Text document was generated using [employer] voice recognition software. It may contain grammatical or spelling errors. Kindly contact undersigned for clarification of any documentation item in question.
[2020-07-21 22:44] LABS: Thyroid Stimulating Hormone 1.7 uIu/ml (0.300-4.500)
--- NOTE | 2020-07-21 22:59 | XRay Report ---
SINGLE VIEW CHEST CLINICAL HISTORY: Renal insufficiency. FINDINGS: An AP, portable, upright chest radiograph is compared to study dated 09/09/2017. The examin ation is degraded by portable technique and patient rotation. The heart is enlarged noting atheroscle rotic calcification of the thoracic aorta. The pulmonary vasculature is noncongested. Chronic interst itial thickening is similar to previous. There is bibasilar scarring/atelectasis. No airspace consoli dation or large pleural effusion is identified. No pneumothorax is seen. The skeletal structures are osteopenic. The bony thorax is grossly intact. IMPRESSION: Cardiomegaly with no acute cardiopulmonary abnormality. ACT 112: Negative or not required by law. Electronically signed by: Laci Guzman M.D. 07/21/2020 10:57 PM
[2020-07-22] MEDS ORDERED: PROMETHAZINE HCL 6.25 MG in SODIUM CHLORIDE 0.9% 50 ML IV PRN (01:16)
[2020-07-22] MEDS ORDERED: GLUCOSE 40% GEL 15 GM TUBE PO PRN (01:16)
[2020-07-22] MEDS ORDERED: oxyCODONE HCL IR 5 MG TAB (IMMEDIATE RELEASE) PO PRN (01:16)
[2020-07-22] MEDS ORDERED: CARBOHYDRATES FOR HYPOGLYCEMIA PO PRN (01:16)
[2020-07-22] MEDS ORDERED: FLUTICASONE PROPIONATE NA SPR 16 GM BTL PRN (01:16)
[2020-07-22] MEDS ORDERED: GLUCAGON FOR INJ 1 MG VIAL SQ PRN (01:16)
[2020-07-22] MEDS ORDERED: GLUCOSE 10 TABS/TUBE PO PRN (01:16)
[2020-07-22] MEDS ORDERED: DEXTROSE 50% 50 ML SYRINGE IV PRN (01:16)
[2020-07-22] MEDS ORDERED: ACETAMINOPHEN 325 MG TAB PO PRN (01:16)
[2020-07-22] MEDS: INSULIN ASPART 100 UNITS/ML 3 ML PEN SC SCH ×3 (02:04→12:29)
[2020-07-22 02:07] LABS: Basophils # (auto) 0.05 K/uL (0-0.2); Basophils % (auto) 0.5 %; Eosinophils % (auto) 10.1 %; Hematocrit (blood only) 34.6 % (42-52); Hemoglobin 12.1 g/dL (14.0-18.0); Lymphocytes # (auto) 1.78 K/uL (1.2-3.4); Lymphocytes % (auto) 17.9 %; Mean Corpuscular Volume 85.6 fL (80-100); Monocytes # (auto) 1.15 K/uL (0.11-0.59); Monocytes % (auto) 11.6 %; Neutrophils # (auto) 5.86 K/uL (1.4-6.5); Neutrophils % (auto) 58.9 %; Platelet Count 239 K/uL (130-400); RDW Coefficient of Variation 14.9 % (11.5-14.5); RDW Standard Deviation 46.5 fL (36.4-46.3); Red Blood Count 4.04 M/uL (4.7-6.1); White Blood Count 9.94 K/uL (4.8-10.8)
[2020-07-22 02:25] LABS: BUN Creatinine Ratio 17.3 (10-20); Calcium 8.5 mg/dl (8.5-10.1); Creatinine Clr Calc Pharmacy 34.8 ml/min; Est GFR (Non-African American) 44.9; Potassium 3.9 mmol/L (3.5-5.1)
[2020-07-22] MEDS ORDERED: HEPARIN SOD 5,000 UNIT/0.5 ML VIAL SQ SCH ×2 (06:00→14:00)
[2020-07-22 06:08] LABS: Hematocrit (blood only) 36.6 % (42-52); Hemoglobin 12.9 g/dL (14.0-18.0); Reticulocytes # 0.08 10^6/uL (0.02-0.10)
[2020-07-22 06:37] LABS: Ferritin 277.3 ng/ml (8-388)
[2020-07-22] MEDS ORDERED: carvediloL 12.5 MG TAB PO SCH (08:00)
[2020-07-22] MEDS ORDERED: Nursing to Pharmacy Communication SCH (08:30)
--- NOTE | 2020-07-22 08:37 | Hospitalist Progress Note ---
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 Urine osmolality of 311 and urine sodium of 61. Admission sodium was 122 now improved to 127. - Nephrology consulted, recommend fluid restriction of 40 ounces daily after discharge. Stopped HCTZ. - Recommend BMP on Friday and nephrology follow-up in 1 to 2 weeks. Hypertension -Current BP 115/62 COPD as per records, pulmonary status stable PVD as per records CRI, serum creatinine close to baseline Hypothyroidism, euthyroid as of today's TSH New onset anemia - Anemia work-up, transfuse PRBC if hemoglobin less than 8 and or for symptomatic anemia (hx PVD as per records) DM2 on oral medications, well-controlled as of recent outpatient hemoglobin A1c of 6.16 March 2020 ISS BG goal [id number] DVT prophylaxis. Heparin subcu Full code Admission and Anticipated Discharge Date Admission Date: July 21, 2020 Subjective Pt is sitting up in bed in no acute distress. Patient's daughter present at the bedside. Patient denies any fevers, chills, chest pain, shortness of breath, abdominal pain, nausea or vomiting. He also denies any dizziness or lightheadedness. Review of Systems Review of Systems: All systems reviewed & are unremarkable except as noted in HPI & below Constitutional: no fever and no chills Respiratory: no cough and no dyspnea Cardiovascular: no chest pain and no palpitations Gastrointestinal: no abdominal pain, no nausea and no vomiting Physical Exam Physical Exam: Constitutional: Elderly male, sitting up in bed, in no acute distress, WD/WN, vitals as above Eyes: PERRL, EOMI, conjunctivae normal, anicteric sclerae ENMT: external ear and nose normal, oropharynx normal Respiratory: normal respiratory effort, lungs clear to auscultation Cardiovascular: Rate/Rhythm: regular rate and regular rhythm Vessels: normal peripheral pulses Extremities: no edema Gastrointestinal (Abdomen): normal bowel sounds, soft, nontender Musculoskeletal: no cyanosis or clubbing, extremities motor strength 5/5, moves extremities spontaneously Skin: no rashes, warm and dry Neurologic: PERRL, EOMI, accommodation nl, no face palsy, no dysarthria, moves extremities spontaneously Psychiatric: A+Ox3, euthymic affect Results & Data Results & Data ([place]) Vital Signs (Past 12 Hours) Vital Signs Temp Pulse Pulse Pulse Resp BP BP 07/22/20 08:19 72 07/22/20 07:50 36.8 C 54 L 18 125/62 07/22/20 04:32 36.9 C 53 L 18 127/74 07/22/20 01:20 36.9 C 55 L 69 16 159/82 H 07/22/20 00:00 51 L 16 115/51 L 07/21/20 23:30 54 L 22 118/71 07/21/20 23:02 57 L 21 148/73 H 07/21/20 22:30 52 L 22 119/73 07/21/20 21:30 52 L 21 125/67 07/21/20 21:00 51 L 17 127/69 07/21/20 20:41 76 20 157/90 H Pulse Ox 07/22/20 08:19 07/22/20 07:50 97 07/22/20 04:32 98 07/22/20 01:20 98 07/22/20 00:00 96 07/21/20 23:30 97 07/21/20 23:02 99 07/21/20 22:30 98 07/21/20 21:30 98 07/21/20 21:00 98 07/21/20 20:41 Laboratory Results 07/22/20 07/22/20 07/22/20 Range/Units 07:41 05:48 05:48 WBC (4.8-10.8) K/uL RBC (4.7-6.1) M/uL Hgb (14.0-18.0) g/dL Hct (42-52) % MCV (80-100) fL MCH (25-34) pg MCHC (32-36) g/dL RDW Std Deviation (36.4-46.3) fL RDW Coeff of Randal (11.5-14.5) % Plt Count (130-400) K/uL MPV (7.4-10.4) fL Immature Gran % (Auto) % Neut % (Auto) % Lymph % (Auto) % [place] % (Auto) % Eos % (Auto) % Baso % (Auto) % Reticulocyte % (Auto) (0.5-2.0) % Neut # (Auto) (1.4-6.5) K/uL Lymph # (Auto) (1.2-3.4) K/uL [place] # (Auto) (0.11-0.59) K/uL Eos # (Auto) (0-0.5) K/uL Baso # (Auto) (0-0.2) K/uL Reticulocyte # (0.02-0.10) 10^6/uL Immature Gran # (Auto) (0.00-0.02) K/uL Sodium 127 L (136-145) mmol/L Potassium (3.5-5.1) mmol/L Chloride (98-107) mmol/L Carbon Dioxide (21-32) mmol/L Anion Gap (3-11) BUN (7-18) mg/dl Creatinine (0.6-1.4) mg/dl Est Cr Clr Drug Dosing ml/min Est GFR ( Amer) Est GFR (Non-Af Amer) BUN/Creatinine Ratio (10-20) Glucose (70-99) mg/dl POC Glucose 123 H (70-99) mg/dl Osmolality (280-300) mOsm/kg Calcium (8.5-10.1) mg/dl Phosphorus (2.5-4.9) mg/dl Magnesium (1.8-2.4) mg/dl Iron 52 (35-175) mcg/dl TIBC 231 L (250-450) mcg/dl Transferrin 185 L (200-360) mg/dl Ferritin 277.3 (8-388) ng/ml Total Bilirubin (0.2-1) mg/dl AST (15-37) U/L ALT (12-78) U/L Alkaline Phosphatase (45-117) U/L Total Protein (6.4-8.2) gm/dl Albumin (3.4-5.0) gm/dl Globulin (2.5-4.0) gm/dl Albumin/Globulin Ratio (0.9-2) Lipase (73-393) U/L Vitamin B12 Pending Folate Pending TSH (0.300-4.500) uIu/ml Specimen Hemolysis Urine Color Urine Appearance (Clear) Urine pH (4.5-7.5) Ur Specific [place] (1.000-1.030) Urine Protein (Negative) Urine Glucose (UA) (Negative) Urine Ketones (Negative) Urine Blood (Negative) Urine Nitrite (Negative) Urine Bilirubin (Negative) Urine Urobilinogen (Negative) Ur Leukocyte Esterase (Negative) Urine Osmolality (500-800) mOsm/kg Ur Random Sodium mmol/L Blood Type Antibody Screen 07/22/20 07/22/20 07/22/20 Range/Units 05:48 05:48 02:02 WBC (4.8-10.8) K/uL RBC (4.7-6.1) M/uL Hgb 12.9 L (14.0-18.0) g/dL Hct 36.6 L (42-52) % MCV (80-100) fL MCH (25-34) pg MCHC (32-36) g/dL RDW Std Deviation (36.4-46.3) fL RDW Coeff of Randal (11.5-14.5) % Plt Count (130-400) K/uL MPV (7.4-10.4) fL Immature Gran % (Auto) % Neut % (Auto) % Lymph % (Auto) % [place] % (Auto) % Eos % (Auto) % Baso % (Auto) % Reticulocyte % (Auto) 2.0 (0.5-2.0) % Neut # (Auto) (1.4-6.5) K/uL Lymph # (Auto) (1.2-3.4) K/uL [place] # (Auto) (0.11-0.59) K/uL Eos # (Auto) (0-0.5) K/uL Baso # (Auto) (0-0.2) K/uL Reticulocyte # 0.08 (0.02-0.10) 10^6/uL Immature Gran # (Auto) (0.00-0.02) K/uL Sodium (136-145) mmol/L Potassium (3.5-5.1) mmol/L Chloride (98-107) mmol/L Carbon Dioxide (21-32) mmol/L Anion Gap (3-11) BUN (7-18) mg/dl Creatinine (0.6-1.4) mg/dl Est Cr Clr Drug Dosing ml/min Est GFR ( Amer) Est GFR (Non-Af Amer) BUN/Creatinine Ratio (10-20) Glucose (70-99) mg/dl POC Glucose 124 H (70-99) mg/dl Osmolality (280-300) mOsm/kg Calcium (8.5-10.1) mg/dl Phosphorus (2.5-4.9) mg/dl Magnesium (1.8-2.4) mg/dl Iron (35-175) mcg/dl TIBC (250-450) mcg/dl Transferrin (200-360) mg/dl Ferritin (8-388) ng/ml Total Bilirubin (0.2-1) mg/dl AST (15-37) U/L ALT (12-78) U/L Alkaline Phosphatase (45-117) U/L Total Protein (6.4-8.2) gm/dl Albumin (3.4-5.0) gm/dl Globulin (2.5-4.0) gm/dl Albumin/Globulin Ratio (0.9-2) Lipase (73-393) U/L Vitamin B12 Folate TSH (0.300-4.500) uIu/ml Specimen Hemolysis Urine Color Urine Appearance (Clear) Urine pH (4.5-7.5) Ur Specific [place] (1.000-1.030) Urine Protein (Negative) Urine Glucose (UA) (Negative) Urine Ketones (Negative) Urine Blood (Negative) Urine Nitrite (Negative) Urine Bilirubin (Negative) Urine Urobilinogen (Negative) Ur Leukocyte Esterase (Negative) Urine Osmolality (500-800) mOsm/kg Ur Random Sodium mmol/L Blood Type O Positive Antibody Screen NEGATIVE 07/22/20 07/22/20 07/22/20 Range/Units 01:59 01:59 01:51 WBC 9.94 (4.8-10.8) K/uL RBC 4.04 L (4.7-6.1) M/uL Hgb 12.1 L (14.0-18.0) g/dL Hct 34.6 L (42-52) % MCV 85.6 (80-100) fL MCH 30.0 (25-34) pg MCHC 35.0 (32-36) g/dL RDW Std Deviation 46.5 H (36.4-46.3) fL RDW Coeff of Randal 14.9 H (11.5-14.5) % Plt Count 239 (130-400) K/uL MPV 8.0 (7.4-10.4) fL Immature Gran % (Auto) 1.0 % Neut % (Auto) 58.9 % Lymph % (Auto) 17.9 % [place] % (Auto) 11.6 % Eos % (Auto) 10.1 % Baso % (Auto) 0.5 % Reticulocyte % (Auto) (0.5-2.0) % Neut # (Auto) 5.86 (1.4-6.5) K/uL Lymph # (Auto) 1.78 (1.2-3.4) K/uL [place] # (Auto) 1.15 H (0.11-0.59) K/uL Eos # (Auto) 1.00 H (0-0.5) K/uL Baso # (Auto) 0.05 (0-0.2) K/uL Reticulocyte # (0.02-0.10) 10^6/uL Immature Gran # (Auto) 0.10 H (0.00-0.02) K/uL Sodium 126 L (136-145) mmol/L Potassium 3.9 (3.5-5.1) mmol/L Chloride 95 L (98-107) mmol/L Carbon Dioxide 24 (21-32) mmol/L Anion Gap 7.0 (3-11) BUN 24 H (7-18) mg/dl Creatinine 1.40 (0.6-1.4) mg/dl Est Cr Clr Drug Dosing 34.8 ml/min Est GFR ( Amer) 52.0 Est GFR (Non-Af Amer) 44.9 BUN/Creatinine Ratio 17.3 (10-20) Glucose 115 H (70-99) mg/dl POC Glucose 123 H (70-99) mg/dl Osmolality (280-300) mOsm/kg Calcium 8.5 (8.5-10.1) mg/dl Phosphorus (2.5-4.9) mg/dl Magnesium (1.8-2.4) mg/dl Iron (35-175) mcg/dl TIBC (250-450) mcg/dl Transferrin (200-360) mg/dl Ferritin (8-388) ng/ml Total Bilirubin (0.2-1) mg/dl AST (15-37) U/L ALT (12-78) U/L Alkaline Phosphatase (45-117) U/L Total Protein (6.4-8.2) gm/dl Albumin (3.4-5.0) gm/dl Globulin (2.5-4.0) gm/dl Albumin/Globulin Ratio (0.9-2) Lipase (73-393) U/L Vitamin B12 Folate TSH (0.300-4.500) uIu/ml Specimen Hemolysis Urine Color Urine Appearance (Clear) Urine pH (4.5-7.5) Ur Specific [place] (1.000-1.030) Urine Protein (Negative) Urine Glucose (UA) (Negative) Urine Ketones (Negative) Urine Blood (Negative) Urine Nitrite (Negative) Urine Bilirubin (Negative) Urine Urobilinogen (Negative) Ur Leukocyte Esterase (Negative) Urine Osmolality (500-800) mOsm/kg Ur Random Sodium mmol/L Blood Type Antibody Screen 07/21/20 07/21/20 07/21/20 Range/Units Unknown 20:45 20:45 WBC (4.8-10.8) K/uL RBC (4.7-6.1) M/uL Hgb (14.0-18.0) g/dL Hct (42-52) % MCV (80-100) fL MCH (25-34) pg MCHC (32-36) g/dL RDW Std Deviation (36.4-46.3) fL RDW Coeff of Randal (11.5-14.5) % Plt Count (130-400) K/uL MPV (7.4-10.4) fL Immature Gran % (Auto) % Neut % (Auto) % Lymph % (Auto) % [place] % (Auto) % Eos % (Auto) % Baso % (Auto) % Reticulocyte % (Auto) (0.5-2.0) % Neut # (Auto) (1.4-6.5) K/uL Lymph # (Auto) (1.2-3.4) K/uL [place] # (Auto) (0.11-0.59) K/uL Eos # (Auto) (0-0.5) K/uL Baso # (Auto) (0-0.2) K/uL Reticulocyte # (0.02-0.10) 10^6/uL Immature Gran # (Auto) (0.00-0.02) K/uL Sodium (136-145) mmol/L Potassium (3.5-5.1) mmol/L Chloride (98-107) mmol/L Carbon Dioxide (21-32) mmol/L Anion Gap (3-11) BUN (7-18) mg/dl Creatinine (0.6-1.4) mg/dl Est Cr Clr Drug Dosing ml/min Est GFR ( Amer) Est GFR (Non-Af Amer) BUN/Creatinine Ratio (10-20) Glucose (70-99) mg/dl POC Glucose (70-99) mg/dl Osmolality (280-300) mOsm/kg Calcium (8.5-10.1) mg/dl Phosphorus (2.5-4.9) mg/dl Magnesium (1.8-2.4) mg/dl Iron (35-175) mcg/dl TIBC (250-450) mcg/dl Transferrin (200-360) mg/dl Ferritin (8-388) ng/ml Total Bilirubin (0.2-1) mg/dl AST (15-37) U/L ALT (12-78) U/L Alkaline Phosphatase (45-117) U/L Total Protein (6.4-8.2) gm/dl Albumin (3.4-5.0) gm/dl Globulin (2.5-4.0) gm/dl Albumin/Globulin Ratio (0.9-2) Lipase (73-393) U/L Vitamin B12 Folate TSH (0.300-4.500) uIu/ml Specimen Hemolysis Urine Color Yellow Urine Appearance Clear (Clear) Urine pH 5.5 (4.5-7.5) Ur Specific [place] 1.010 (1.000-1.030) Urine Protein Negative (Negative) Urine Glucose (UA) Negative (Negative) Urine Ketones Negative (Negative) Urine Blood Negative (Negative) Urine Nitrite Negative (Negative) Urine Bilirubin Negative (Negative) Urine Urobilinogen Negative (Negative) Ur Leukocyte Esterase Negative (Negative) Urine Osmolality 311 L (500-800) mOsm/kg Ur Random Sodium 61 mmol/L Blood Type Antibody Screen 07/21/20 07/21/20 07/21/20 Range/Units 19:40 19:40 19:40 WBC 8.83 (4.8-10.8) K/uL RBC 4.28 L (4.7-6.1) M/uL Hgb 13.0 L (14.0-18.0) g/dL Hct 36.6 L (42-52) % MCV 85.5 (80-100) fL MCH 30.4 (25-34) pg MCHC 35.5 (32-36) g/dL RDW Std Deviation 46.8 H (36.4-46.3) fL RDW Coeff of Randal 15.2 H (11.5-14.5) % Plt Count 268 (130-400) K/uL MPV 8.5 (7.4-10.4) fL Immature Gran % (Auto) 0.8 % Neut % (Auto) 58.9 % Lymph % (Auto) 16.9 % [place] % (Auto) 11.0 % Eos % (Auto) 11.8 % Baso % (Auto) 0.6 % Reticulocyte % (Auto) (0.5-2.0) % Neut # (Auto) 5.21 (1.4-6.5) K/uL Lymph # (Auto) 1.49 (1.2-3.4) K/uL [place] # (Auto) 0.97 H (0.11-0.59) K/uL Eos # (Auto) 1.04 H (0-0.5) K/uL Baso # (Auto) 0.05 (0-0.2) K/uL Reticulocyte # (0.02-0.10) 10^6/uL Immature Gran # (Auto) 0.07 H (0.00-0.02) K/uL Sodium 123 L (136-145) mmol/L Potassium 4.2 (3.5-5.1) mmol/L Chloride 92 L (98-107) mmol/L Carbon Dioxide 22 (21-32) mmol/L Anion Gap 9.0 (3-11) BUN 27 H (7-18) mg/dl Creatinine 1.63 H (0.6-1.4) mg/dl Est Cr Clr Drug Dosing 29.9 ml/min Est GFR ( Amer) 43.3 Est GFR (Non-Af Amer) 37.3 BUN/Creatinine Ratio 16.6 (10-20) Glucose 142 H (70-99) mg/dl POC Glucose (70-99) mg/dl Osmolality (280-300) mOsm/kg Calcium 8.8 (8.5-10.1) mg/dl Phosphorus 3.8 (2.5-4.9) mg/dl Magnesium 1.9 (1.8-2.4) mg/dl Iron (35-175) mcg/dl TIBC (250-450) mcg/dl Transferrin (200-360) mg/dl Ferritin (8-388) ng/ml Total Bilirubin 0.5 (0.2-1) mg/dl AST 17 (15-37) U/L ALT 19 (12-78) U/L Alkaline Phosphatase 73 (45-117) U/L Total Protein 7.9 (6.4-8.2) gm/dl Albumin 3.6 (3.4-5.0) gm/dl Globulin 4.3 H (2.5-4.0) gm/dl Albumin/Globulin Ratio 0.8 L (0.9-2) Lipase 190 (73-393) U/L Vitamin B12 Folate TSH Cancelled 1.700 (0.300-4.500) uIu/ml Specimen Hemolysis Urine Color Urine Appearance (Clear) Urine pH (4.5-7.5) Ur Specific [place] (1.000-1.030) Urine Protein (Negative) Urine Glucose (UA) (Negative) Urine Ketones (Negative) Urine Blood (Negative) Urine Nitrite (Negative) Urine Bilirubin (Negative) Urine Urobilinogen (Negative) Ur Leukocyte Esterase (Negative) Urine Osmolality (500-800) mOsm/kg Ur Random Sodium mmol/L Blood Type Antibody Screen 07/21/20 Range/Units 19:40 WBC (4.8-10.8) K/uL RBC (4.7-6.1) M/uL Hgb (14.0-18.0) g/dL Hct (42-52) % MCV (80-100) fL MCH (25-34) pg MCHC (32-36) g/dL RDW Std Deviation (36.4-46.3) fL RDW Coeff of Randal (11.5-14.5) % Plt Count (130-400) K/uL MPV (7.4-10.4) fL Immature Gran % (Auto) % Neut % (Auto) % Lymph % (Auto) % [place] % (Auto) % Eos % (Auto) % Baso % (Auto) % Reticulocyte % (Auto) (0.5-2.0) % Neut # (Auto) (1.4-6.5) K/uL Lymph # (Auto) (1.2-3.4) K/uL [place] # (Auto) (0.11-0.59) K/uL Eos # (Auto) (0-0.5) K/uL Baso # (Auto) (0-0.2) K/uL Reticulocyte # (0.02-0.10) 10^6/uL Immature Gran # (Auto) (0.00-0.02) K/uL Sodium (136-145) mmol/L Potassium (3.5-5.1) mmol/L Chloride (98-107) mmol/L Carbon Dioxide (21-32) mmol/L Anion Gap (3-11) BUN (7-18) mg/dl Creatinine (0.6-1.4) mg/dl Est Cr Clr Drug Dosing ml/min Est GFR ( Amer) Est GFR (Non-Af Amer) BUN/Creatinine Ratio (10-20) Glucose (70-99) mg/dl POC Glucose (70-99) mg/dl Osmolality 264 L (280-300) mOsm/kg Calcium (8.5-10.1) mg/dl Phosphorus (2.5-4.9) mg/dl Magnesium (1.8-2.4) mg/dl Iron (35-175) mcg/dl TIBC (250-450) mcg/dl Transferrin (200-360) mg/dl Ferritin (8-388) ng/ml Total Bilirubin (0.2-1) mg/dl AST (15-37) U/L ALT (12-78) U/L Alkaline Phosphatase (45-117) U/L Total Protein (6.4-8.2) gm/dl Albumin (3.4-5.0) gm/dl Globulin (2.5-4.0) gm/dl Albumin/Globulin Ratio (0.9-2) Lipase (73-393) U/L Vitamin B12 Folate TSH (0.300-4.500) uIu/ml Specimen Hemolysis Urine Color Urine Appearance (Clear) Urine pH (4.5-7.5) Ur Specific [place] (1.000-1.030) Urine Protein (Negative) Urine Glucose (UA) (Negative) Urine Ketones (Negative) Urine Blood (Negative) Urine Nitrite (Negative) Urine Bilirubin (Negative) Urine Urobilinogen (Negative) Ur Leukocyte Esterase (Negative) Urine Osmolality (500-800) mOsm/kg Ur Random Sodium mmol/L Blood Type Antibody Screen Medications Administered Current Inpatient Medications Acetaminophen (Acetaminophen 325 Mg Tab) 650 mg PO Q4H PRN PRN Reason: Pain or Fever Stop: 08/21/20 01:15 Aspirin (Aspirin 81 Mg Ectab) 81 mg PO QDD [place] Stop: 08/21/20 16:29 Carvedilol (Carvedilol 12.5 Mg Tab) 12.5 mg PO BIDM [place] Stop: 08/21/20 07:59 Last Admin: 07/22/20 08:22 Dose: 12.5 mg Documented by: Dextrose (Dextrose 50% 50 Ml Syringe) 25 - 50 ml IV UD PRN; Protocol PRN Reason: Hypoglycemia Protocol Stop: 08/21/20 01:15 Docusate Sodium (Docusate Sodium 100 Mg Cap) 100 mg PO HS [place] Stop: 08/21/20 20:59 Dorzolamide/Timolol (Dorzolamide/Timolol 22.3/6.8mg/Ml 10 Ml Btl) 1 drops OPB BID [place] Stop: 08/21/20 08:59 Last Admin: 07/22/20 08:23 Dose: 1 drops Documented by: Felodipine (Felodipine 5 Mg Tabcr) 10 mg PO QAM [place] Stop: 08/21/20 08:59 Last Admin: 07/22/20 08:23 Dose: 10 mg Documented by: Fluticasone Furoate (Fluticasone Furoate 200mcg 14 Puffs/Inhaler) 1 puffs INH DAILY [place] Stop: 08/21/20 08:59 Last Admin: 07/22/20 08:22 Dose: 1 puffs Documented by: Fluticasone Propionate (Fluticasone Propionate Na Spr 16 Gm Btl) 1 sprays NA HS PRN PRN Reason: Congestion Stop: 08/21/20 01:15 Glucagon (Glucagon For Inj 1 Mg Vial) 1 mg SQ UD PRN; Protocol PRN Reason: Hypoglycemia Protocol Stop: 08/21/20 01:15 Glucose (Glucose 10 Tabs/Tube) 4 - 8 tabs PO UD PRN; Protocol PRN Reason: Hypoglycemia Protocol Stop: 08/21/20 01:15 Glucose (Glucose 40% Gel 15 Gm Tube) 15 - 30 gm PO UD PRN; Protocol PRN Reason: Hypoglycemia Protocol Stop: 08/21/20 01:15 Heparin Sodium (Porcine) (Heparin Sod 5,000 Unit/0.5 Ml Vial) 5,000 units SQ Q8 [facility] Stop: 08/21/20 13:59 Promethazine HCl 6.25 mg/ (Sodium Chloride) 50.25 mls @ 201 mls/hr IV Q6H PRN PRN Reason: Nausea And Vomiting Stop: 08/21/20 01:15 Insulin Aspart (Insulin Aspart 100 Units/Ml 3 Ml Pen) 0 units SC ACHS [facility] Stop: 08/21/20 01:15 Last Admin: 07/22/20 08:23 Dose: 2 units Documented by: Levothyroxine Sodium (Levothyroxine Sodium 100 Mcg Tablet) 100 mcg PO QAM [facility] Stop: 08/21/20 08:59 Last Admin: 07/22/20 08:23 Dose: 100 mcg Documented by: Miscellaneous (Carbohydrates For Hypoglycemia ) 15 - 30 gm PO UD PRN PRN Reason: Hypoglycemia Protocol Stop: 08/21/20 01:15 Miscellaneous (Sodium Chloride 2% Op: Order Awaiting Action) 1 ea N/A QS [facility] Stop: 08/21/20 07:59 Last Admin: 07/22/20 08:20 Dose: Not Given Documented by: Miscellaneous Information (Nursing To Pharmacy Communication) 1 ea N/A TODAY [facility] Stop: 08/21/20 08:29 Multivitamins/Minerals (Cerovite Adv Formula Tab) 1 tab PO QDL [facility] Stop: 08/21/20 11:29 Last Admin: 07/22/20 08:23 Dose: 1 tab Documented by: Oxycodone HCl (Oxycodone Hcl Ir 5 Mg Tab (Immediate Release)) 5 mg PO Q4H PRN PRN Reason: Pain Stop: 08/05/20 01:15 Prednisolone Acetate (Prednisolone Acetate 1% Op Susp 5 Ml Btl) 1 drops OP QAM [facility] Stop: 08/21/20 08:59 Last Admin: 07/22/20 08:23 Dose: 1 drops Documented by: Simvastatin (Simvastatin 10 Mg Tab) 10 mg PO HS [facility] Stop: 08/21/20 20:59 Travoprost (Travoprost Z 0.004% Oph Soln 2.5 Ml Btl) 1 drops [address] [facility] Stop: 08/21/20 20:59
[2020-07-22 08:44] LABS: Folate (Folic Acid) 13.91 ng/ml (>5.38)
[2020-07-22] MEDS ORDERED: prednisoLONE acetate 1% OP SUSP 5 ML BTL OP SCH (09:00)
[2020-07-22] MEDS ORDERED: LEVOTHYROXINE SODIUM 100 MCG TABLET PO SCH (09:00)
[2020-07-22] MEDS ORDERED: DORZOLAMIDE/TIMOLOL 22.3/6.8MG/ML 10 ML BTL OPB SCH (09:00)
[2020-07-22] MEDS ORDERED: FLUTICASONE FUROATE 200MCG 14 PUFFS/INHALER INH SCH (09:00)
[2020-07-22] MEDS ORDERED: FELODIPINE 5 MG TABCR PO SCH (09:00)
--- NOTE | 2020-07-22 11:09 | Nephrology Consultation ---
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 Urine osmolality of 311 and urine sodium of 61. Admission sodium was 122 now improved to 127. I discussed pathophysiology of hyponatremia with the patient. -I recommend fluid restriction of 40 ounces daily even after discharge. -Stop hydrochlorothiazide going forward -From renal standpoint patient can be discharged with BMP on Friday and nephrology follow-up in 1 to 2 weeks (2) HTN (hypertension): Blood pressure is controlled. Patient can be discharged on current medications. Stop hydrochlorothiazide as mentioned above. History of Present Illness Reason for Consultation: Hyponatremia Requesting Physician: Baltazar Contreras MD Attending Physician: Baltazar Contrreas MD History of Present Illness 89-year-old male with PMH DM type II, hypothyroidism, HTN, and CKD stage III, who was admitted on 07/21/2020 with sodium of 122 in the office. Patient takes hydrochlorothiazide at home. Patient recently evaluated by cardiology and asked to increase water intake. He has been drinking about 80 ounces of fluids daily. Hydrochlorothiazide was held on admission and sodium is up to 127 this morning. Urine osmolality was 311. Urine sodium of 61. Patient feels well denies any shortness of breath or leg swelling. No urinary symptoms. Blood pressure is controlled. Allergies Allergy/AdvReac Type Severity Reaction Status Date / Time No Known Allergies Allergy Verified 12/06/19 09:36 Home Medications Home Medications Medication Instructions Recorded Confirmed Type Complete Prostate 2 tab PO QDD 07/21/20 07/21/20 History aspirin [Aspir-81] 81 mg PO QDD 07/21/20 07/21/20 History carvedilol 12.5 mg PO BIDM 07/21/20 07/21/20 History docusate sodium [Colace] 100 mg PO HS 07/21/20 07/21/20 History dorzolamide-timolol 1 drp OPB BID 07/21/20 07/21/20 History felodipine 10 mg PO QAM 07/21/20 07/21/20 History fluticasone propionate 1 spray INTRANASAL HS PRN 07/21/20 07/21/20 History fluticasone propionate [Flovent 2 puff INHALATION BID 07/21/20 07/21/20 History HFA] hydrochlorothiazide 25 mg PO QAM 07/21/20 07/21/20 History levothyroxine 100 mcg PO QAM 07/21/20 07/21/20 History lisinopril 40 mg PO QAM 07/21/20 07/21/20 History metformin 500 mg PO BIDM 07/21/20 07/21/20 History trahyhhv-rgz-hayoi-vit K-lycop 1 tab PO QDL 07/21/20 07/21/20 History [Men's Multivitamin] prednisolone acetate 1 drp OPL QAM 07/21/20 07/21/20 History simvastatin 10 mg PO HS 07/21/20 07/21/20 History sodium chloride 1 drp OPB QID 07/21/20 07/21/20 History spironolactone 25 mg PO QAM 07/21/20 07/21/20 History travoprost 1 drp OPB HS 07/21/20 07/21/20 History Patient History Medical History Asthma Chronic rhinitis CKD (chronic kidney disease), stage III DM type 2 (diabetes mellitus, type 2) Glaucoma Hx of basal cell carcinoma Hypertension Hypothyroidism Surgical History H/O hernia repair Family History Other Heart disease Social History Smoking Status: Never smoker Second Hand Exposure: No; Hx Alcohol Use: No Hx Substance Use: No Preferred Language: Barbadian Communication Ability: Effective Marking Clerk Required: No Beliefs That Will Affect Care: None marital status: / Current Living Situation: Alone Other Information That Helps Us Care for You: No Feels Safe at Home: Yes Safety Concerns: Feels Safe At This Time Assistive Devices: None Review of Systems Review of Systems: All systems reviewed & are unremarkable except as noted in HPI & below Physical Exam Physical Exam: General exam: Appears comfortable, no acute distress HEENT: Pupils are equal and reactive to light Neck: No JVD, neck is supple trachea is midline Respiratory system: Clear breath sounds bilaterally. Gastrointestinal: Abdomen is soft, non distended, non tender, bowel sounds are present CVS: Regular rate and rhythm. No murmurs, rubs or gallops Musculoskeletal: No joint or muscle tenderness Extremities: Non tender, no edema, peripheral pulses are present Neuro: Oriented, no tremors, no focal neurological deficits Skin: No rashes Results & Data ([facility]) Vital Signs (Past 12 Hours) Vital Signs Temp Pulse Pulse Pulse Resp BP BP 07/22/20 08:59 55 L 07/22/20 08:19 72 07/22/20 07:50 36.8 C 54 L 18 125/62 07/22/20 04:32 36.9 C 53 L 18 127/74 07/22/20 01:20 36.9 C 55 L 69 16 159/82 H 07/22/20 00:00 51 L 16 115/51 L 07/21/20 23:30 54 L 22 118/71 Pulse Ox 07/22/20 08:59 07/22/20 08:19 07/22/20 07:50 97 07/22/20 04:32 98 07/22/20 01:20 98 07/22/20 00:00 96 07/21/20 23:30 97 Laboratory Results 07/22/20 05:48 07/21/20 07/21/20 07/22/20 19:40 19:40 01:59 WBC 8.83 9.94 RBC 4.28 L 4.04 L MCV 85.5 85.6 MCH 30.4 30.0 MCHC 35.5 35.0 RDW Std Deviation 46.8 H 46.5 H RDW Coeff of Randal 15.2 H 14.9 H Plt Count 268 239 MPV 8.5 8.0 Phosphorus 3.8 Albumin 3.6
[2020-07-22] MEDS ORDERED: CEROVITE ADV FORMULA TAB PO SCH (11:30)
--- NOTE | 2020-07-22 12:12 | Electrocardiogram Report ---
Test Reason : Blood Pressure : / mmHG Vent. Rate : 052 BPM Atrial Rate : 052 BPM P-R Int : 192 ms QRS Dur : 148 ms QT Int : 462 ms P-R-T Axes : 000 -71 013 degrees QTc Int : 429 ms Poor data quality, interpretation may be adversely affected Sinus bradycardia Right bundle branch block Left anterior fascicular block Bifascicular block Abnormal ECG When compared with ECG of 15-JUL-2017 09:42, Premature atrial complexes are no longer Present Nonspecific T wave abnormality now evident in Anterior leads Confirmed by Pal Fisher ([id number] on 07/22/2020 12:12:49 PM Referred By: REFERRED SELF Confirmed By:Pal Fisher
--- NOTE | 2020-07-22 16:08 | Discharge Summary ---
Date of Service July 22, 2020 Admission HPI Per Admitting Provider 89-year-old male with PMH DM type II, hypothyroidism, HTN, CKD stage III, and other problems listed below who was referred to the ED by outpatient precinct commanding officer for evaluation of hyponatremia. Patient reports he has been feeling well recently. Reports he continues to be very active, gardens in the summertime. He has been staying home recently however due to the pandemic. He has a daughter and son that helps him with his needs. Patient denies chest pain shortness of breath. No lightheadedness, dizziness, diaphoresis, syncopal events. No abdominal pain, nausea, vomiting, diarrhea. Denies any other recent illnesses, fevers, chills. No urinary symptoms. Patient reports a 10 pound intentional weight loss over the past couple of months. Patient reports that about 2 years ago, he cut out all salt from his diet due to problems with high blood pressure. He was evaluated by cardiology 03/2020 and was instructed to increase his water intake. Patient reports he drinks about 6-8 8 ounces glasses of water a day and 2 cups of coffee. Outpatient records show Na+ 122 05/04/2020 and repeat lab set on 07/17/2020 demonstrated Na+ 122 again. Nephrology recommended the patient come to the hospital for management of hyponatremia. In the ED, patient is hemodynamically stable. Labs show Na+ 123, otherwise unremarkable/at patient's baseline. Admission Exam Per Admitting Provider Constitutional: WD/WN, vitals as above Eyes: PERRL, conjunctivae normal, anicteric sclerae ENMT: external ear and nose normal, oropharynx normal Respiratory: normal respiratory effort, lungs clear to auscultation Cardiovascular: Rate/Rhythm: regular rate and regular rhythm Vessels: normal peripheral pulses Extremities: no edema Gastrointestinal (Abdomen): normal bowel sounds, soft, nontender, no hepatosplenomegaly Musculoskeletal: no cyanosis or clubbing, extremities motor strength 5/5 Skin: no rashes, warm and dry Neurologic: PERRL, EOMI, accommodation nl, no face palsy, no dysarthria Psychiatric: A+Ox3, euthymic affect Principal Diagnosis Hyponatremia Discharge Exam Constitutional: Elderly male, sitting up in bed, in no acute distress, WD/WN, vitals as above Eyes: PERRL, EOMI, conjunctivae normal, anicteric sclerae ENMT: external ear and nose normal, oropharynx normal Respiratory: normal respiratory effort, lungs clear to auscultation Cardiovascular: Rate/Rhythm: regular rate and regular rhythm Vessels: normal peripheral pulses Extremities: no edema Gastrointestinal (Abdomen): normal bowel sounds, soft, nontender Musculoskeletal: no cyanosis or clubbing, extremities motor strength 5/5, moves extremities spontaneously Skin: no rashes, warm and dry Neurologic: PERRL, EOMI, accommodation nl, no face palsy, no dysarthria, moves extremities spontaneously Psychiatric: A+Ox3, euthymic affect Discharge Data Allergies Allergy/AdvReac Type Severity Reaction Status Date / Time No Known Allergies Allergy Verified 12/06/19 09:36 Consultations 07/21/20 21:44 ED Decision to Admit Stat 07/22/20 01:16 Consult Nephrology Routine Hospital Course (1) Hyponatremia: Acute on chronic hyponatremia Hx HCTZ intake -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 Urine osmolality of 311 and urine sodium of 61. Admission sodium was 122 now improved to 127. - Nephrology consulted, recommend fluid restriction of 40 ounces daily after discharge. Stopped HCTZ. - Recommend BMP on Friday and nephrology follow-up in 1 to 2 weeks. Hypertension -Current BP 115/62 COPD as per records, pulmonary status stable PVD as per records CRI, serum creatinine close to baseline Hypothyroidism, euthyroid as of today's TSH DM2 on oral medications, well-controlled as of recent outpatient hemoglobin A1c of 6.16 March 2020, ISS BG goal [id number] Total Time Total Time Spent Total Time Spent (In Minutes): 40 Total Time Includes: Examination of the Patient, Discharge Planning, Medication Reconciliation and Communication With Other Providers Discharge Plan Discharge Items Patient Disposition: Home - Self-Care Reason For Visit: HYPONATREMIA Discharge Diagnosis: Hyponatremia Activity: Per Instructions section Non-emergency contact: Primary Care Provider and Search Optimization Analyst Call non-emergency contact if: you have any medication questions and your symptoms worsen Follow-up/Referrals: Scott Gasca MD [Primary Care Provider] - Diet: Carb Consistent or DM2 and Heart Healthy Diet Comment: Restrict your fluid intake to 40 ounces a day Addtl Attending Provider Instructions: Have your blood work done on Friday to check your sodium level. Prescription is provided for you at the discharge from. Restrict your fluid intake to 40 ounces a day. Stop taking hydrochlorothiazide. You should follow-up with nephrology (Dr. Santos) within 1 to 2 weeks. If you do not hear back in 48 hours after your blood work, please contact [facility] nephrology office or your primary care physician's office. Pending Studies at Discharge: No Stand-Alone Forms: My [facility] Circa, Smoking Cessation Medications and DC Order Prescriptions: Continued metformin 500 mg tablet 500 mg PO BIDM RF: 0 carvedilol 12.5 mg tablet 12.5 mg PO BIDM RF: 0 simvastatin 10 mg tablet 10 mg PO HS RF: 0 travoprost 0.004 % drops 1 drp OPB HS RF: 0 aspirin [Aspir-81] 81 mg Tablet,Delayed Release (Dr/Ec) 81 mg PO QDD RF: 0 spironolactone 25 mg tablet 25 mg PO QAM RF: 0 levothyroxine 100 mcg tablet 100 mcg PO QAM RF: 0 prednisolone acetate 1 % drops,suspension 1 drp OPL QAM RF: 0 docusate sodium [Colace] 100 mg Capsule 100 mg PO HS RF: 0 felodipine 10 mg tablet extended release 24 hr 10 mg PO QAM RF: 0 dorzolamide-timolol 22.3-6.8 mg/mL drops 1 drp OPB BID RF: 0 Flovent HFA 220 mcg/actuation HFA aerosol inhaler 2 puff INHALATION BID RF: 0 lisinopril 40 mg tablet 40 mg PO QAM RF: 0 fluticasone propionate 50 mcg/actuation spray,suspension 1 spray INTRANASAL HS PRN (Reason: Congestion) RF: 0 sodium chloride 2 % Drops 1 drp OPB QID RF: 0 Men's Multivitamin 400-20-300 mcg Tablet 1 tab PO QDL RF: 0 Complete Prostate 2 tab PO QDD RF: 0 Discontinued hydrochlorothiazide 25 mg tablet 25 mg PO QAM RF: 0 Discharge Orders: Discharge Order (Routine); Ordered 07/22/20 Ordered By: Baltazar Contreras Admission Data Admit Date/Time: 07/21/20 22:48 Attending Provider: Baltazar Contreras Admit Provider: Prem Palomares Primary Care Provider: Scott Gasca Other Providers: Prem Palomares ; Dionne Santos ; Roman Bobby ; Adriana Larson ; Vani Griffin ; Frances Ramey ; Chicho Navarro
[2020-07-22] MEDS ORDERED: ASPIRIN 81 MG ECTAB PO SCH (16:30)
[2020-07-22] MEDS ORDERED: DOCUSATE SODIUM 100 MG CAP PO SCH (21:00)
[2020-07-22] MEDS ORDERED: TRAVOPROST Z 0.004% OPH SOLN 2.5 ML BTL OPB SCH (21:00)
[2020-07-22] MEDS ORDERED: SIMVASTATIN 10 MG TAB PO SCH (21:00)
[2020-07-23] MEDS ORDERED: LEVOTHYROXINE SODIUM 100 MCG TABLET PO SCH (06:30)
== END 2020-07-22 16:45 | disposition home or self-care (01) | DRG 645 ==
LOC: ED 19:11 → 2N 22:48